=== PATIENT | female | born 1955 | race African-American/Black ===

== ENCOUNTER 2016-12-20 08:51 | Inpatient (IN) | payer MEDICAID ==
[~2016-12-20] VITALS: Ht 170.2 cm; Wt 121.5 kg
[~2016-12-20 08:51] MED LIST: AMLO2.5T PO; ATOR10TA PO; CAR3125T PO; HYDR-1421 PO; INSU70IN9 SUBCUT; METO25TA62 PO; NITR0.4S31 SL; VALS40TA2 PO; ZOLP5TAB5 PO
[2016-12-20] MEDS ORDERED: ONDANSETRON HCL 4 MG/2 ML VIAL IV ONE (11:15)
[2016-12-20] MEDS ORDERED: LIDOCAINE 1% HCL (LOCAL ANESTH.) INJ 20ML MDV IJ ONE (11:45)
[2016-12-20] MEDS ORDERED: HYDROmorphone HCL 2 MG/ML VL IV ONE (12:00)
[2016-12-20 13:26] LABS: Basophils # (auto) 0.1 uL; Basophils % (auto) 0.7 % (0.0-2.0); Eosinophils # (auto) 0.1 uL; Hematocrit 32.2 % (36.0-46.0); Hemoglobin 10.3 g/dL (12.2-16.2); Lymphocytes # (auto) 1.5 uL; Lymphocytes % (auto) 21.7 % (10.0-50.0); Mean Corpuscular Hemoglobin 30.7 pg (28.0-32.0); Mean Corpuscular Hgb Conc. 31.9 g/dL (32.0-36.0); Mean Corpuscular Volume 96.4 fL (80.0-100.0); Mean Platelet Volume 8.1 fL (7.4-10.4); Monocytes # (auto) 0.4 uL; Monocytes % (auto) 6.2 % (0.0-12.0); Neutrophils % (auto) 69.4 % (37.0-80.0); Platelet Count (auto) 212 10^3/uL (140-450); Red Cell Distribution Width 16.7 % (11.6-16.0); White Blood Cell 7.1 10^3/uL (4.4-10.8)
[2016-12-20 13:50] LABS: Temperature: 23.1 C (20.0-25.0)
[2016-12-20] MEDS ORDERED: DEXTROSE (50%) 50ML SYRG IV PRN (14:00)
[2016-12-20 14:05] LABS: Potassium 4.8 mmol/L (3.5-5.1)
[2016-12-20 14:06] LABS: Albumin 3.2 g/dL (3.4-5.0); BUN/Creatinine Ratio 5.1; Bilirubin, Total 0.4 mg/dL (0.2-1.0); Calcium 7.8 mg/dL (8.5-10.1); Total Protein 7.3 g/dL (6.4-8.2)
[2016-12-20 14:14] LABS: INR 1.11 (0.9-1.15); Partial Thromboplastin Time 26.3 sec (22.64-33.71); Prothrombin Time 11.4 sec (9.37-12.3)
[2016-12-20] MEDS: VALSARTAN 80 MG TAB PO ONE ×2 (14:37→14:38)
[2016-12-20] MEDS: METOPROLOL TARTRATE 25 MG TAB PO ONE (14:38)
[2016-12-20] MEDS: HYDROmorphone HCL 2 MG/ML VL IV PRN ×2 (16:29→20:46)
[2016-12-20] MEDS: ACCU-CHEK COMFORT CURVE STRIP VI SCH ×2 (17:00→22:15)
[2016-12-20] MEDS: InsuLIN REG 1unit/0.01ml Soln (100units/ml) SC SCH ×2 (17:54→22:21)
[2016-12-20 18:00] VITALS: BP 134/68
[2016-12-20] MEDS: IPRATROPIUM BROM 0.5 MG/2.5ML INH SOL NEB SCH (19:17)
[2016-12-20] MEDS: ALBUTEROL SULF 2.5 MG/0.5ML(0.5%) NEB SOLN NEB SCH (19:17)
[2016-12-20] MEDS: INSULIN DETEMIR(LEVEMIR) 1unit/0.01ml Soln (100units/ml) SC SCH (22:00)
[2016-12-20] MEDS: METOPROLOL TARTRATE 25 MG TAB PO SCH (22:15)
[2016-12-20] MEDS: ATORVASTATIN 20 MG TAB PO SCH (22:15)
[2016-12-20 22:18] VITALS: BP 145/71
[2016-12-21] MEDS: HYDROmorphone HCL 2 MG/ML VL IV PRN ×4 (01:37→23:26)
[2016-12-21 05:10] VITALS: BP 128/59
[2016-12-21] MEDS: ACCU-CHEK COMFORT CURVE STRIP VI SCH ×4 (06:41→22:00)
[2016-12-21] MEDS: InsuLIN REG 1unit/0.01ml Soln (100units/ml) SC SCH ×4 (06:41→22:00)
[2016-12-21 06:48] LABS: BUN/Creatinine Ratio 5.4; Calcium 7.6 mg/dL (8.5-10.1)
[2016-12-21 06:52] LABS: Potassium 6.1 mmol/L (3.5-5.1)
[2016-12-21] MEDS: IPRATROPIUM BROM 0.5 MG/2.5ML INH SOL NEB SCH ×3 (07:02→19:54)
[2016-12-21] MEDS: ALBUTEROL SULF 2.5 MG/0.5ML(0.5%) NEB SOLN NEB SCH ×3 (07:02→19:53)
[2016-12-21] MEDS ORDERED: SODIUM POLYSTYRENE SULF 15GM/60ML SUSP PO ONE (07:45)
[2016-12-21] MEDS ORDERED: DEXTROSE (50%) 50ML SYRG IV ONE (07:45)
[2016-12-21] MEDS ORDERED: CALCIUM GLUC 4.65 MEQ/10ML 4.65 MEQ in SODIUM CHL 0.9% 50 ML IV ONE (07:45)
[2016-12-21] MEDS ORDERED: ALBUTEROL SULF 2.5 MG/0.5ML(0.5%) NEB SOLN NEB ONE (07:45)
[2016-12-21] MEDS ORDERED: InsuLIN REG 1unit/0.01ml Soln (100units/ml) IV ONE (07:45)
[2016-12-21] MEDS ORDERED: SODIUM BICARBONATE 8.4 % INJ 50ML VIAL IV ONE (07:45)
[2016-12-21 08:30] VITALS: BP 95/46
[2016-12-21] MEDS ORDERED: VALSARTAN 80 MG TAB PO SCH (10:00)
[2016-12-21] MEDS: METOPROLOL TARTRATE 25 MG TAB PO SCH ×2 (10:00→22:00)
[2016-12-21] MEDS: B-COMPLEX W/ C & FOLIC ACID(NEPHROVITE TAB) PO SCH (10:00)
[2016-12-21] MEDS: INSULIN DETEMIR(LEVEMIR) 1unit/0.01ml Soln (100units/ml) SC SCH ×2 (10:00→22:00)
[2016-12-21] MEDS ORDERED: LEVOFLOXACIN 250MG 50 ML IV ONE (11:15)
[2016-12-21] MEDS ORDERED: LEVOFLOXACIN 500MG 100 ML IV ONE (11:30)
[2016-12-21] MEDS ORDERED: SODIUM CHL 0.9% 1000 ML BAG XX ONE (11:45)
[2016-12-21] MEDS ORDERED: EPOETIN ALFA 3,000 UNIT/1 ML VIAL IV ONE (12:15)
[2016-12-21] MEDS ORDERED: EPOETIN ALFA 2,000 UNIT/1 ML VIAL IV ONE (12:15)
[2016-12-21 12:34] VITALS: BP 99/45
[2016-12-21 16:25] VITALS: BP 135/68
[2016-12-21 17:09] VITALS: BP 115/83
[2016-12-21 21:48] VITALS: BP 134/54
[2016-12-21] MEDS: ATORVASTATIN 20 MG TAB PO SCH (22:00)
[2016-12-22] MEDS: ALBUTEROL SULF 2.5 MG/0.5ML(0.5%) NEB SOLN NEB SCH ×5 (00:56→19:05)
[2016-12-22] MEDS: IPRATROPIUM BROM 0.5 MG/2.5ML INH SOL NEB SCH ×5 (00:56→19:05)
[2016-12-22 04:59] VITALS: BP 102/45
[2016-12-22] MEDS: HYDROmorphone HCL 2 MG/ML VL IV PRN ×2 (05:47→12:47)
[2016-12-22 06:03] LABS: Basophils # (auto) 0 uL; Basophils % (auto) 0.3 % (0.0-2.0); Eosinophils # (auto) 0.1 uL; Eosinophils % (auto) 1.1 % (0.0-7.0); Hematocrit 28.4 % (36.0-46.0); Hemoglobin 9.1 g/dL (12.2-16.2); Lymphocytes # (auto) 1.2 uL; Lymphocytes % (auto) 15.1 % (10.0-50.0); Mean Corpuscular Hgb Conc. 32.2 g/dL (32.0-36.0); Mean Corpuscular Volume 96.2 fL (80.0-100.0); Mean Platelet Volume 8.3 fL (7.4-10.4); Monocytes # (auto) 0.5 uL; Monocytes % (auto) 6.4 % (0.0-12.0); Neutrophils # (auto) 6.2 uL; Neutrophils % (auto) 77.1 % (37.0-80.0); Platelet Count (auto) 206 10^3/uL (140-450); Red Cell Distribution Width 16.5 % (11.6-16.0)
[2016-12-22 06:34] LABS: BUN/Creatinine Ratio 4.8; Calcium 7.1 mg/dL (8.5-10.1); Potassium 3.9 mmol/L (3.5-5.1)
[2016-12-22] MEDS: LEVOFLOXACIN 250MG 50 ML IV SCH (06:37)
[2016-12-22] MEDS: InsuLIN REG 1unit/0.01ml Soln (100units/ml) SC SCH ×4 (07:00→21:49)
[2016-12-22] MEDS: ACCU-CHEK COMFORT CURVE STRIP VI SCH ×4 (07:00→21:51)
[2016-12-22 08:30] VITALS: BP 132/52
[2016-12-22] MEDS: B-COMPLEX W/ C & FOLIC ACID(NEPHROVITE TAB) PO SCH (09:34)
[2016-12-22] MEDS: INSULIN DETEMIR(LEVEMIR) 1unit/0.01ml Soln (100units/ml) SC SCH ×2 (09:36→21:50)
[2016-12-22] MEDS: METOPROLOL TARTRATE 25 MG TAB PO SCH ×2 (09:39→21:55)
[2016-12-22] MEDS ORDERED: LEVOFLOXACIN 250MG 50 ML IV SCH (10:00)
[2016-12-22] MEDS ORDERED: ASPirin 81 mg TAB PO ONE (12:00)
[2016-12-22] MEDS ORDERED: CLOPIDOGREL BISULFATE 75 MG TAB PO ONE ×2 (12:00→15:15)
[2016-12-22 12:30] VITALS: BP 98/64
[2016-12-22] MEDS ORDERED: ASPirin 325 MG TAB PO ONE (14:30)
[2016-12-22] MEDS ORDERED: CLOPIDOGREL 300 MG TAB PO ONE ×2 (14:30→15:15)
[2016-12-22] MEDS ORDERED: ASPirin-EC 81 mg tab PO ONE (15:15)
[2016-12-22 17:29] VITALS: BP 96/37
[2016-12-22] MEDS ORDERED: ACETAMINOPHEN 500 MG TAB PO PRN (19:30)
[2016-12-22] MEDS: traMADol HCL 50 MG TAB PO PRN (21:07)
[2016-12-22] MEDS: ATORVASTATIN 20 MG TAB PO SCH (21:55)
[2016-12-22 22:04] VITALS: BP 111/55
[2016-12-23] VITALS (7 sets, daily range): BP systolic 99–127; BP diastolic 42–58
[2016-12-23] MEDS: IPRATROPIUM BROM 0.5 MG/2.5ML INH SOL NEB SCH ×4 (00:57→18:37)
[2016-12-23] MEDS: ALBUTEROL SULF 2.5 MG/0.5ML(0.5%) NEB SOLN NEB SCH ×4 (00:57→18:38)
[2016-12-23 06:11] LABS: Basophils # (auto) 0 uL; Basophils % (auto) 0.4 % (0.0-2.0); Eosinophils # (auto) 0.1 uL; Eosinophils % (auto) 1.9 % (0.0-7.0); Hematocrit 29.7 % (36.0-46.0); Hemoglobin 9.5 g/dL (12.2-16.2); Lymphocytes # (auto) 1.3 uL; Lymphocytes % (auto) 17.7 % (10.0-50.0); Mean Corpuscular Hgb Conc. 32.1 g/dL (32.0-36.0); Mean Corpuscular Volume 96.6 fL (80.0-100.0); Mean Platelet Volume 8.3 fL (7.4-10.4); Monocytes # (auto) 0.5 uL; Neutrophils # (auto) 5.5 uL; Platelet Count (auto) 205 10^3/uL (140-450); Red Cell Distribution Width 16.5 % (11.6-16.0); White Blood Cell 7.6 10^3/uL (4.4-10.8)
[2016-12-23] MEDS: InsuLIN REG 1unit/0.01ml Soln (100units/ml) SC SCH ×4 (06:23→22:08)
[2016-12-23] MEDS: ACCU-CHEK COMFORT CURVE STRIP VI SCH ×4 (06:24→22:19)
[2016-12-23 06:45] LABS: BUN/Creatinine Ratio 5.3; Calcium 7.5 mg/dL (8.5-10.1); Potassium 3.8 mmol/L (3.5-5.1)
[2016-12-23] MEDS ORDERED: SODIUM CHL 0.9% 1000 ML BAG XX ONE (08:00)
[2016-12-23] MEDS ORDERED: EPOETIN ALFA 10,000 UNIT/1 ML VIAL IV ONE (08:00)
[2016-12-23] MEDS ORDERED: CLOPIDOGREL BISULFATE 75 MG TAB PO SCH (10:00)
[2016-12-23] MEDS: INSULIN DETEMIR(LEVEMIR) 1unit/0.01ml Soln (100units/ml) SC SCH ×2 (10:00→22:10)
[2016-12-23] MEDS ORDERED: ASPirin-EC 81 mg tab PO SCH (10:00)
[2016-12-23] MEDS: B-COMPLEX W/ C & FOLIC ACID(NEPHROVITE TAB) PO SCH (10:52)
[2016-12-23] MEDS: CLOPIDOGREL BISULFATE 75 MG TAB PO SCH (10:52)
[2016-12-23] MEDS: ASPirin 81 mg TAB PO SCH (10:52)
[2016-12-23] MEDS: traMADol HCL 50 MG TAB PO PRN (10:53)
[2016-12-23] MEDS: METOPROLOL TARTRATE 25 MG TAB PO SCH ×2 (10:53→21:11)
[2016-12-23] MEDS: ACETAMINOPHEN/CODEINE#3 (300/30mg) TAB PO PRN ×2 (14:33→21:19)
[2016-12-23] MEDS ORDERED: FAMOTIDINE 20 MG TAB PO ONE (18:00)
[2016-12-23] MEDS: ATORVASTATIN 20 MG TAB PO SCH (22:08)
[2016-12-24] MEDS: ALBUTEROL SULF 2.5 MG/0.5ML(0.5%) NEB SOLN NEB SCH ×3 (00:38→12:39)
[2016-12-24] MEDS: IPRATROPIUM BROM 0.5 MG/2.5ML INH SOL NEB SCH ×3 (00:38→12:39)
[2016-12-24 05:00] VITALS: BP 121/50
[2016-12-24] MEDS: ACETAMINOPHEN/CODEINE#3 (300/30mg) TAB PO PRN ×3 (05:12→17:41)
[2016-12-24] MEDS: LEVOFLOXACIN 250MG 50 ML IV SCH (05:19)
[2016-12-24] MEDS: InsuLIN REG 1unit/0.01ml Soln (100units/ml) SC SCH ×3 (05:20→17:00)
[2016-12-24] MEDS: ACCU-CHEK COMFORT CURVE STRIP VI SCH ×3 (05:20→17:00)
[2016-12-24] MEDS ORDERED: SODIUM CHL 0.9% 1000 ML BAG XX ONE ×2 (07:30→10:30)
[2016-12-24] MEDS ORDERED: EPOETIN ALFA 10,000 UNIT/1 ML VIAL IV ONE ×2 (07:30→10:30)
[2016-12-24 08:13] VITALS: BP 100/44
[2016-12-24] MEDS: ASPirin 81 mg TAB PO SCH (10:00)
[2016-12-24] MEDS: B-COMPLEX W/ C & FOLIC ACID(NEPHROVITE TAB) PO SCH (10:00)
[2016-12-24] MEDS: INSULIN DETEMIR(LEVEMIR) 1unit/0.01ml Soln (100units/ml) SC SCH (10:00)
[2016-12-24] MEDS: METOPROLOL TARTRATE 25 MG TAB PO SCH (10:00)
[2016-12-24] MEDS: CLOPIDOGREL BISULFATE 75 MG TAB PO SCH (10:00)
[2016-12-24] MEDS ORDERED: FAMOTIDINE 20 MG TAB PO SCH (10:00)
[2016-12-24 13:08] VITALS: BP 108/52
[2016-12-24 16:55] VITALS: BP 119/59
== END 2016-12-24 19:30 | disposition home or self-care (01) | DRG 194 ==
LOC: EDBD 08:51 → ER 08:51 → OVERFLOW 08:52 → WEST WING 17:47
PROVIDERS: ADMIT Internal Medicine; ATTEND Internal Medicine
PROC: 0X950ZZ Drainage of Left Axilla, Open Approach (ICD-10-PCS; principal; 2016-12-20)
PROC: 5A1D60Z (ICD-10-PCS; 2016-12-20)
DX: I50.33 Acute on chronic diastolic (congestive) heart failure (principal); J96.10 Chronic respiratory failure, unspecified whether with hypoxia or hypercapnia; N18.6 End stage renal disease; E11.21 Type 2 diabetes mellitus with diabetic nephropathy; I13.2 Hypertensive heart and chronic kidney disease with heart failure and with stage 5 chronic kidney disease, or end stage renal disease; E87.5 Hyperkalemia; J44.9 Chronic obstructive pulmonary disease, unspecified; E66.01 Morbid (severe) obesity due to excess calories; L02.412 Cutaneous abscess of left axilla; Z99.2 Dependence on renal dialysis; I25.10 Atherosclerotic heart disease of native coronary artery without angina pectoris; D64.9 Anemia, unspecified; E11.22 Type 2 diabetes mellitus with diabetic chronic kidney disease; F17.210 Nicotine dependence, cigarettes, uncomplicated; M16.11 Unilateral primary osteoarthritis, right hip; M70.60 Trochanteric bursitis, unspecified hip; Z98.61 Coronary angioplasty status; Z99.81 Dependence on supplemental oxygen; Z88.5 Allergy status to narcotic agent; Z88.8 Allergy status to other drugs, medicaments and biological substances; Z98.51 Tubal ligation status; Z90.89 Acquired absence of other organs; Z80.9 Family history of malignant neoplasm, unspecified; Z71.9 Counseling, unspecified
CPT/HCPCS: 10060; 36415; 71010; 72170; 73502; 80048; 80053; 82962; 83036; 83880; 84132; 84443; 84484; 85025; 85610; 85730; 87081; 90935; 93306; 93926; 94640; 94761; 96374; 96375; 96376; J0885; J1642; J1815; J1956; J2001; J2405; Q4081

== ENCOUNTER 2017-05-02 16:34 | Emergency (ER) | payer MEDICAID ==
[~2017-05-02] VITALS: Ht 154.9 cm; Wt 124.3 kg
[2017-05-02 16:56] VITALS: BP 176/84
[2017-05-02] MEDS ORDERED: DIAZEPAM 5 MG TAB PO ONE (17:15)
[2017-05-02] MEDS ORDERED: KETOROLAC TROMETH 60MG/2ML VIAL IM ONE (17:15)
== END 2017-05-02 18:16 | disposition home or self-care (01) ==
LOC: EDBD 16:34 → ER 16:37
DX: M47.892 Other spondylosis, cervical region (principal); I13.0 Hypertensive heart and chronic kidney disease with heart failure and stage 1 through stage 4 chronic kidney disease, or unspecified chronic kidney disease; E11.22 Type 2 diabetes mellitus with diabetic chronic kidney disease; N18.9 Chronic kidney disease, unspecified; I50.9 Heart failure, unspecified; N18.6 End stage renal disease; E78.5 Hyperlipidemia, unspecified; I10 Essential (primary) hypertension; Z90.89 Acquired absence of other organs; Z98.51 Tubal ligation status; F17.210 Nicotine dependence, cigarettes, uncomplicated; Z79.4 Long term (current) use of insulin; Z88.6 Allergy status to analgesic agent; Z88.5 Allergy status to narcotic agent; Z88.8 Allergy status to other drugs, medicaments and biological substances
CPT/HCPCS: 72040; 96372; 99284; J1885

== ENCOUNTER 2017-10-11 15:52 | Inpatient (IN) | payer MEDICAID ==
[~2017-10-11] VITALS: Ht 162.6 cm; Wt 114.6 kg
[~2017-10-11 15:52] MED LIST changes: +DOPamine 1600mCg/ml 400MG/250ml NSorD5 KIT/BAG IV ONE; +EPINEPHrine HCL 1 MG/10 ML SYRG IV ONE; +SODIUM BICARBONATE 8.4% INJ 50ML SYRINGE IV ONE
[2017-10-11] MEDS ORDERED: MIDAZOLAM DRIP 50 mg/50mL 50 ML IV ONE (16:00)
[2017-10-11] MEDS ORDERED: MIDAZOLAM DRIP 50 mg/50mL 50 ML IV SCH (16:18)
[2017-10-11] MEDS ORDERED: FUROSEMIDE 40 MG/4 ML VIAL IV ONE (17:00)
[2017-10-11] MEDS ORDERED: NOREPINEPHRINE 8 MG/250ML KIT 250 ML IV ONE (17:14)
[2017-10-11 17:15] LABS: Albumin 3.3 g/dL (3.4-5.0); BUN/Creatinine Ratio 5.9; Bilirubin, Total 0.5 mg/dL (0.2-1.0); Calcium 9.4 mg/dL (8.5-10.1); Magnesium 2.4 mg/dL (1.6-2.6); Potassium 3.4 mmol/L (3.5-5.1); Total Protein 7.8 g/dL (6.4-8.2)
[2017-10-11] MEDS ORDERED: NOREPINEPHRINE 8 MG/250ML KIT 250 ML IV SCH ×2 (17:30→18:00)
[2017-10-11 17:31] LABS: Basophils # (auto) 0.1 uL; Eosinophils # (auto) 0.2 uL; Monocytes # (auto) 0.4 uL; Nucleated Red Blood Cells % 0.1 %
[2017-10-11 17:35] LABS: Basophils % (auto) 1.4 % (0.0-2.0); Eosinophils % (auto) 1.8 % (0.0-7.0); Hematocrit 35.9 % (36.0-46.0); Lymphocytes # (auto) 3.2 uL; Lymphocytes % (auto) 34.1 % (10.0-50.0); Mean Corpuscular Hemoglobin 29.7 pg (28.0-32.0); Mean Corpuscular Hgb Conc. 30.6 g/dL (32.0-36.0); Monocytes % (auto) 4.1 % (0.0-12.0); Neutrophils # (auto) 5.5 uL; Neutrophils % (auto) 58.6 % (37.0-80.0); Platelet Count (auto) 219 10^3/uL (140-450); Red Cell Distribution Width 18.7 % (11.8-14.3); White Blood Cell 9.4 10^3/uL (4.4-10.8)
[2017-10-11 17:36] LABS: INR 1.07 (0.9-1.15); Partial Thromboplastin Time 22.1 sec (22.64-33.71); Prothrombin Time 11.7 sec (9.37-12.3)
[2017-10-11] MEDS: MIDAZOLAM DRIP 50 mg/50mL 50 ML IV SCH (17:54)
[2017-10-11] MEDS ORDERED: PIPERACILLIN-TAZOB 2.25GM 50 ML IV ONE (18:00)
[2017-10-11] MEDS ORDERED: SODIUM CHLORIDE 0.9% 1,000 ML IV SCH (18:07)
[2017-10-11] MEDS ORDERED: ONDANSETRON HCL 4 MG/2 ML VIAL IV PRN (18:15)
[2017-10-11] MEDS ORDERED: DEXTROSE (50%) 50ML SYRG IV PRN (18:15)
[2017-10-11] MEDS ORDERED: NITROGLYCERIN 0.4 MG SL TAB SL PRN (18:15)
[2017-10-11] MEDS ORDERED: PANTOPRAZOLE 40 MG/10 ML VIAL IV ONE (18:15)
[2017-10-11 18:20] VITALS: BP 139/59
[2017-10-11] MEDS ORDERED: ENOXAPARIN SOD 30 MG/0.3 ML SYRINGE SC SCH (18:40)
[2017-10-11] MEDS ORDERED: POTASSIUM CHLORIDE 20 MEQ, LIDOCAINE 1% (LOCAL ANESTH.) 2 ML in SODIUM CHL 0.9% 100 ML IV ONE (19:15)
[2017-10-11] MEDS ORDERED: PIPERACILLIN-TAZOB 0.75 GM in D5W 5% 50 ML IV PRN (19:15)
[2017-10-11] MEDS: PROPOFOL 100 ML IV SCH (19:47)
[2017-10-11 20:15] VITALS: BP 136/52
[2017-10-11 20:41] LABS: Lactic Acid w/Reflex 3.9 mmol/L (0.4-2.0)
[2017-10-11] MEDS: LINEZOLID 600MG/300ML 300 ML IV SCH (21:50)
[2017-10-11] MEDS ORDERED: FAMOTIDINE (10MG/ML) 2ML VL IV SCH (22:00)
[2017-10-11] MEDS ORDERED: PIPERACILLIN-TAZOB 2.25GM 50 ML IV SCH ×2 (22:00)
[2017-10-11 22:15] VITALS: BP 140/67
[2017-10-11 22:41] VITALS: BP 132/64
[2017-10-11 23:04] LABS: Lactic Acid w/Reflex 2.1 mmol/L (0.4-2.0)
[2017-10-11 23:15] VITALS: BP 127/62
[2017-10-12] VITALS (56 sets, daily range): BP systolic 76–150; BP diastolic 37–74
[2017-10-12] MEDS: ACCU-CHEK COMFORT CURVE STRIP VI SCH ×4 (01:30→18:03)
[2017-10-12] MEDS: InsuLIN REG 1unit/0.01ml Soln (100units/ml) SC SCH ×4 (01:57→18:00)
[2017-10-12] MEDS: HYDROmorphone HCL 2 MG/ML VL IV PRN ×3 (02:10→11:43)
[2017-10-12 04:13] LABS: Basophils # (auto) 0 uL; Basophils % (auto) 0.1 % (0.0-2.0); Eosinophils # (auto) 0 uL; Eosinophils % (auto) 0.1 % (0.0-7.0); Hematocrit 30.7 % (36.0-46.0); Hemoglobin 9.8 g/dL (12.2-16.2); Lymphocytes # (auto) 1.1 uL; Lymphocytes % (auto) 10.8 % (10.0-50.0); Mean Corpuscular Hemoglobin 30.1 pg (28.0-32.0); Mean Corpuscular Hgb Conc. 31.8 g/dL (32.0-36.0); Mean Corpuscular Volume 94.5 fL (80.0-100.0); Monocytes # (auto) 0.5 uL; Neutrophils # (auto) 8.6 uL; Platelet Count (auto) 202 10^3/uL (140-450); Red Blood Cells 3.25 10^6/uL (4.0-5.20); Red Cell Distribution Width 18.2 % (11.8-14.3); White Blood Cell 10.2 10^3/uL (4.4-10.8)
[2017-10-12 04:31] LABS: Albumin 2.8 g/dL (3.4-5.0); BUN/Creatinine Ratio 6.2; Bilirubin, Total 0.5 mg/dL (0.2-1.0); Calcium 8.2 mg/dL (8.5-10.1); Potassium 4.5 mmol/L (3.5-5.1); Total Protein 7.1 g/dL (6.4-8.2)
[2017-10-12] MEDS ORDERED: NOREPINEPHRINE 8 MG/250ML KIT 250 ML IV SCH (05:11)
[2017-10-12] MEDS ORDERED: ALBUMIN 5% 250 ML IV ONE (05:15)
[2017-10-12] MEDS: IPRATROPIUM BROM 0.5 MG/2.5ML INH SOL NEB SCH ×4 (06:14→19:10)
[2017-10-12] MEDS: ALBUTEROL SULF 2.5 MG/0.5ML(0.5%) NEB SOLN NEB SCH ×4 (06:14→19:10)
[2017-10-12] MEDS: MIDAZOLAM DRIP 50 mg/50mL 50 ML IV SCH ×4 (08:08→22:29)
[2017-10-12] MEDS: PIPERACILLIN-TAZOB 2.25GM 50 ML IV SCH ×2 (08:28→18:03)
[2017-10-12] MEDS: fentaNYL Drip 2500mCg/250mlNS 250 ML IV SCH (09:03)
[2017-10-12] MEDS ORDERED: OPTISON 3ml Vial for INJ IV ONE (09:12)
[2017-10-12] MEDS: LINEZOLID 600MG/300ML 300 ML IV SCH ×2 (09:47→21:47)
[2017-10-12] MEDS: HEPARIN SODIUM (PORCINE) 5000 UNITS/ML 1ML VIAL SC SCH ×2 (09:47→21:48)
[2017-10-12] MEDS: PANTOPRAZOLE 40 MG/10 ML VIAL IV SCH (09:47)
[2017-10-12] MEDS ORDERED: EPOETIN ALFA 10,000 UNIT/1 ML VIAL IV ONE (10:45)
[2017-10-12] MEDS: SODIUM CHLORIDE 0.9% 1,000 ML IV SCH (10:45)
[2017-10-12] MEDS ORDERED: ALBUMIN 25% 100 ML IV PRN (10:45)
[2017-10-12] MEDS ORDERED: SODIUM CHL 0.9% 1000 ML BAG XX ONE (10:45)
[2017-10-12] MEDS: CALCIUM ACETATE 667 MG CAP NG SCH ×2 (14:20→21:47)
[2017-10-12] MEDS: PROPOFOL 100 ML IV SCH (14:24)
[2017-10-12] MEDS ORDERED: LIDOCAINE 1% HCL (LOCAL ANESTH.) INJ 20ML MDV ID ONE (20:00)
[2017-10-12] MEDS: SODIUM CHLOR 0.9% PF (SALINE LOCK) 10ML VIAL IV SCH (21:46)
[2017-10-13] VITALS (54 sets, daily range): BP systolic 101–188; BP diastolic 47–76
[2017-10-13] MEDS: ACCU-CHEK COMFORT CURVE STRIP VI SCH ×4 (00:14→17:14)
[2017-10-13] MEDS: ALBUTEROL SULF 2.5 MG/0.5ML(0.5%) NEB SOLN NEB SCH ×3 (00:23→18:42)
[2017-10-13] MEDS: IPRATROPIUM BROM 0.5 MG/2.5ML INH SOL NEB SCH ×3 (00:23→18:42)
[2017-10-13] MEDS: MIDAZOLAM DRIP 50 mg/50mL 50 ML IV SCH ×5 (02:23→23:46)
[2017-10-13 03:44] LABS: Basophils # (auto) 0.2 uL; Basophils % (auto) 3.4 % (0.0-2.0); Eosinophils # (auto) 0.2 uL; Eosinophils % (auto) 2.4 % (0.0-7.0); Hematocrit 28.4 % (36.0-46.0); Hemoglobin 9.1 g/dL (12.2-16.2); Lymphocytes # (auto) 1.3 uL; Lymphocytes % (auto) 20.4 % (10.0-50.0); Mean Corpuscular Hgb Conc. 31.9 g/dL (32.0-36.0); Mean Corpuscular Volume 94.2 fL (80.0-100.0); Monocytes # (auto) 0.6 uL; Monocytes % (auto) 9.9 % (0.0-12.0); Neutrophils # (auto) 4.1 uL; Neutrophils % (auto) 63.9 % (37.0-80.0); Nucleated Red Blood Cells % 0.1 %; Platelet Count (auto) 187 10^3/uL (140-450); Red Blood Cells 3.02 10^6/uL (4.0-5.20); Red Cell Distribution Width 18.6 % (11.8-14.3); White Blood Cell 6.4 10^3/uL (4.4-10.8)
[2017-10-13 04:05] LABS: Albumin 3.4 g/dL (3.4-5.0); Calcium 8.8 mg/dL (8.5-10.1); Potassium 3.6 mmol/L (3.5-5.1)
[2017-10-13 04:07] LABS: BUN/Creatinine Ratio 4.9
[2017-10-13 04:12] LABS: Bilirubin, Total 0.6 mg/dL (0.2-1.0); Total Protein 7.1 g/dL (6.4-8.2)
[2017-10-13] MEDS: HYDROmorphone HCL 2 MG/ML VL IV PRN (04:39)
[2017-10-13] MEDS: PIPERACILLIN-TAZOB 2.25GM 50 ML IV SCH ×2 (05:43→17:41)
[2017-10-13] MEDS: CALCIUM ACETATE 667 MG CAP NG SCH ×3 (05:43→21:36)
[2017-10-13] MEDS: InsuLIN REG 1unit/0.01ml Soln (100units/ml) SC SCH ×4 (06:00→17:14)
[2017-10-13] MEDS: B-COMPLEX W/ C & FOLIC ACID(NEPHROVITE TAB) NG SCH (09:52)
[2017-10-13] MEDS: PANTOPRAZOLE 40 MG/10 ML VIAL IV SCH (09:52)
[2017-10-13] MEDS: SODIUM CHLOR 0.9% PF (SALINE LOCK) 10ML VIAL IV SCH ×2 (09:52→21:36)
[2017-10-13] MEDS: LINEZOLID 600MG/300ML 300 ML IV SCH (09:52)
[2017-10-13] MEDS: SODIUM CHLORIDE 0.9% 1,000 ML IV SCH (09:52)
[2017-10-13] MEDS: HEPARIN SODIUM (PORCINE) 5000 UNITS/ML 1ML VIAL SC SCH ×2 (10:00→21:37)
[2017-10-13] MEDS ORDERED: Diabetisource AC 1 Liter GT SCH (11:30)
[2017-10-13] MEDS: fentaNYL Drip 2500mCg/250mlNS 250 ML IV SCH ×2 (11:40→21:00)
[2017-10-13] MEDS ORDERED: SODIUM CHL 0.9% 1000 ML BAG XX ONE (15:00)
[2017-10-13] MEDS ORDERED: EPOETIN ALFA 10,000 UNIT/1 ML VIAL IV ONE (15:00)
[2017-10-13] MEDS ORDERED: Novasource Renal 1 Liter GT SCH (15:15)
[2017-10-13] MEDS ORDERED: VANCOMYCIN 1,250 MG in D5W 5% 250 ML IV ONE (16:00)
[2017-10-14] VITALS (33 sets, daily range): BP systolic 107–150; BP diastolic 36–60
[2017-10-14] MEDS: ACCU-CHEK COMFORT CURVE STRIP VI SCH ×4 (00:13→17:40)
[2017-10-14] MEDS: InsuLIN REG 1unit/0.01ml Soln (100units/ml) SC SCH ×4 (00:13→17:40)
[2017-10-14] MEDS: IPRATROPIUM BROM 0.5 MG/2.5ML INH SOL NEB SCH ×4 (00:17→18:59)
[2017-10-14] MEDS: ALBUTEROL SULF 2.5 MG/0.5ML(0.5%) NEB SOLN NEB SCH ×4 (00:17→18:59)
[2017-10-14 03:29] LABS: Basophils # (auto) 0.1 uL; Basophils % (auto) 0.7 % (0.0-2.0); Eosinophils # (auto) 0.2 uL; Eosinophils % (auto) 2.5 % (0.0-7.0); Hematocrit 29.1 % (36.0-46.0); Hemoglobin 9.2 g/dL (12.2-16.2); Lymphocytes # (auto) 1.5 uL; Lymphocytes % (auto) 18.6 % (10.0-50.0); Mean Corpuscular Hgb Conc. 31.7 g/dL (32.0-36.0); Mean Corpuscular Volume 94.5 fL (80.0-100.0); Monocytes # (auto) 0.8 uL; Monocytes % (auto) 9.8 % (0.0-12.0); Neutrophils # (auto) 5.4 uL; Neutrophils % (auto) 68.4 % (37.0-80.0); Platelet Count (auto) 187 10^3/uL (140-450); Red Blood Cells 3.08 10^6/uL (4.0-5.20); Red Cell Distribution Width 18.4 % (11.8-14.3); White Blood Cell 7.9 10^3/uL (4.4-10.8)
[2017-10-14 03:47] LABS: Albumin 3.1 g/dL (3.4-5.0); BUN/Creatinine Ratio 4.7; Calcium 8.9 mg/dL (8.5-10.1); Potassium 4.2 mmol/L (3.5-5.1)
[2017-10-14 03:51] LABS: Bilirubin, Total 0.6 mg/dL (0.2-1.0); Total Protein 7.3 g/dL (6.4-8.2)
[2017-10-14] MEDS: MIDAZOLAM DRIP 50 mg/50mL 50 ML IV SCH ×4 (04:45→22:30)
[2017-10-14] MEDS: SODIUM CHLORIDE 0.9% 1,000 ML IV SCH ×2 (05:00→22:45)
[2017-10-14] MEDS: PIPERACILLIN-TAZOB 2.25GM 50 ML IV SCH ×2 (06:23→17:40)
[2017-10-14] MEDS: CALCIUM ACETATE 667 MG CAP NG SCH ×3 (06:23→21:18)
[2017-10-14] MEDS: fentaNYL Drip 2500mCg/250mlNS 250 ML IV SCH (09:03)
[2017-10-14] MEDS: HEPARIN SODIUM (PORCINE) 5000 UNITS/ML 1ML VIAL SC SCH ×2 (10:00→22:00)
[2017-10-14] MEDS: B-COMPLEX W/ C & FOLIC ACID(NEPHROVITE TAB) NG SCH (10:00)
[2017-10-14] MEDS: PANTOPRAZOLE 40 MG/10 ML VIAL IV SCH (10:00)
[2017-10-14] MEDS: SODIUM CHLOR 0.9% PF (SALINE LOCK) 10ML VIAL IV SCH ×2 (10:00→22:00)
[2017-10-14] MEDS ORDERED: B-COMPLEX W/ C & FOLIC ACID(NEPHROVITE TAB) NG SCH (11:15)
[2017-10-14] MEDS: CALCITRIOL 0.25 MCG CAP NG SCH (12:09)
[2017-10-14] MEDS ORDERED: VANCOMYCIN 1,250 MG in D5W 5% 250 ML IV ONE (16:00)
[2017-10-15] VITALS (65 sets, daily range): BP systolic 95–143; BP diastolic 36–74
[2017-10-15] MEDS: ACCU-CHEK COMFORT CURVE STRIP VI SCH ×4 (00:20→17:46)
[2017-10-15] MEDS: InsuLIN REG 1unit/0.01ml Soln (100units/ml) SC SCH ×4 (00:24→18:14)
[2017-10-15] MEDS: IPRATROPIUM BROM 0.5 MG/2.5ML INH SOL NEB SCH ×4 (00:26→18:43)
[2017-10-15] MEDS: ALBUTEROL SULF 2.5 MG/0.5ML(0.5%) NEB SOLN NEB SCH ×4 (00:26→18:43)
[2017-10-15 04:57] LABS: Hemoglobin 7.7 g/dL (12.2-16.2); Monocytes # (auto) 0.5 uL; Neutrophils # (auto) 4.8 uL; Red Blood Cells 2.53 10^6/uL (4.0-5.20); White Blood Cell 6.3 10^3/uL (4.4-10.8)
[2017-10-15 04:59] LABS: Basophils # (auto) 0 uL; Basophils % (auto) 0.3 % (0.0-2.0); Eosinophils # (auto) 0.1 uL; Eosinophils % (auto) 2.1 % (0.0-7.0); Hematocrit 24.2 % (36.0-46.0); Lymphocytes # (auto) 0.7 uL; Lymphocytes % (auto) 11.8 % (10.0-50.0); Mean Corpuscular Hemoglobin 30.2 pg (28.0-32.0); Mean Corpuscular Hgb Conc. 31.6 g/dL (32.0-36.0); Mean Corpuscular Volume 95.5 fL (80.0-100.0); Monocytes % (auto) 8.8 % (0.0-12.0); Red Cell Distribution Width 17.8 % (11.8-14.3)
[2017-10-15 05:01] LABS: Platelet Count (auto) 175 10^3/uL (140-450)
[2017-10-15 05:19] LABS: Albumin 2.5 g/dL (3.4-5.0); Bilirubin, Total 0.5 mg/dL (0.2-1.0); Calcium 7.6 mg/dL (8.5-10.1); Potassium 4.5 mmol/L (3.5-5.1); Total Protein 6.3 g/dL (6.4-8.2)
[2017-10-15] MEDS: CALCIUM ACETATE 667 MG CAP NG SCH ×3 (06:26→21:58)
[2017-10-15] MEDS: PIPERACILLIN-TAZOB 2.25GM 50 ML IV SCH (06:26)
[2017-10-15] MEDS: fentaNYL Drip 2500mCg/250mlNS 250 ML IV SCH (09:03)
[2017-10-15] MEDS ORDERED: LEVOFLOXACIN 500MG 100 ML IV ONE (09:30)
[2017-10-15] MEDS: SODIUM CHLOR 0.9% PF (SALINE LOCK) 10ML VIAL IV SCH ×2 (09:43→21:58)
[2017-10-15] MEDS: PANTOPRAZOLE 40 MG/10 ML VIAL IV SCH (09:43)
[2017-10-15] MEDS: CALCITRIOL 0.25 MCG CAP NG SCH (09:44)
[2017-10-15] MEDS: HEPARIN SODIUM (PORCINE) 5000 UNITS/ML 1ML VIAL SC SCH ×2 (09:44→21:59)
[2017-10-15] MEDS: B-COMPLEX W/ C & FOLIC ACID(NEPHROVITE TAB) NG SCH (09:44)
[2017-10-15] MEDS ORDERED: VANCOMYCIN PER PHARMACY 1,000 MG IV SCH (17:15)
[2017-10-15] MEDS: MIDAZOLAM DRIP 50 mg/50mL 50 ML IV SCH (21:59)
[2017-10-16] VITALS (69 sets, daily range): BP systolic 93–183; BP diastolic 38–76
[2017-10-16] MEDS: ACCU-CHEK COMFORT CURVE STRIP VI SCH ×4 (00:12→17:56)
[2017-10-16] MEDS: InsuLIN REG 1unit/0.01ml Soln (100units/ml) SC SCH ×4 (00:13→18:00)
[2017-10-16] MEDS: IPRATROPIUM BROM 0.5 MG/2.5ML INH SOL NEB SCH ×4 (00:24→18:35)
[2017-10-16] MEDS: ALBUTEROL SULF 2.5 MG/0.5ML(0.5%) NEB SOLN NEB SCH ×4 (00:24→18:35)
[2017-10-16 05:01] LABS: Basophils # (auto) 0 uL; Basophils % (auto) 0.3 % (0.0-2.0); Hemoglobin 8.3 g/dL (12.2-16.2); Mean Corpuscular Hgb Conc. 32.3 g/dL (32.0-36.0); Monocytes # (auto) 0.6 uL; White Blood Cell 7.2 10^3/uL (4.4-10.8)
[2017-10-16 05:06] LABS: Eosinophils # (auto) 0.3 uL; Eosinophils % (auto) 3.5 % (0.0-7.0); Hematocrit 25.7 % (36.0-46.0); Lymphocytes # (auto) 1.1 uL; Lymphocytes % (auto) 14.9 % (10.0-50.0); Mean Corpuscular Hemoglobin 30.3 pg (28.0-32.0); Mean Corpuscular Volume 93.7 fL (80.0-100.0); Monocytes % (auto) 7.8 % (0.0-12.0); Neutrophils # (auto) 5.3 uL; Neutrophils % (auto) 73.5 % (37.0-80.0); Red Blood Cells 2.74 10^6/uL (4.0-5.20); Red Cell Distribution Width 18.1 % (11.8-14.3)
[2017-10-16 05:09] LABS: Platelet Count (auto) 173 10^3/uL (140-450)
[2017-10-16 05:41] LABS: Potassium 4.5 mmol/L (3.5-5.1)
[2017-10-16 05:42] LABS: BUN/Creatinine Ratio 5.4; Calcium 8.2 mg/dL (8.5-10.1)
[2017-10-16] MEDS: CALCIUM ACETATE 667 MG CAP NG SCH ×3 (06:15→22:29)
[2017-10-16] MEDS ORDERED: EPOETIN ALFA 10,000 UNIT/1 ML VIAL IV ONE ×2 (08:00→13:45)
[2017-10-16] MEDS ORDERED: SODIUM CHL 0.9% 1000 ML BAG XX ONE ×2 (08:00→13:45)
[2017-10-16] MEDS: fentaNYL Drip 2500mCg/250mlNS 250 ML IV SCH (09:03)
[2017-10-16] MEDS: B-COMPLEX W/ C & FOLIC ACID(NEPHROVITE TAB) NG SCH (10:00)
[2017-10-16] MEDS: LEVOFLOXACIN 250MG 50 ML IV SCH (10:00)
[2017-10-16] MEDS: PANTOPRAZOLE 40 MG/10 ML VIAL IV SCH (10:00)
[2017-10-16] MEDS: CALCITRIOL 0.25 MCG CAP NG SCH (10:00)
[2017-10-16] MEDS: HEPARIN SODIUM (PORCINE) 5000 UNITS/ML 1ML VIAL SC SCH ×2 (10:00→22:30)
[2017-10-16] MEDS: SODIUM CHLOR 0.9% PF (SALINE LOCK) 10ML VIAL IV SCH ×2 (10:06→22:29)
[2017-10-17] VITALS (79 sets, daily range): BP systolic 102–168; BP diastolic 47–86
[2017-10-17] MEDS: ACCU-CHEK COMFORT CURVE STRIP VI SCH ×4 (00:09→17:36)
[2017-10-17] MEDS: InsuLIN REG 1unit/0.01ml Soln (100units/ml) SC SCH ×4 (00:10→18:00)
[2017-10-17] MEDS: ALBUTEROL SULF 2.5 MG/0.5ML(0.5%) NEB SOLN NEB SCH ×4 (00:12→18:34)
[2017-10-17] MEDS: IPRATROPIUM BROM 0.5 MG/2.5ML INH SOL NEB SCH ×4 (00:12→18:34)
[2017-10-17 04:23] LABS: Basophils # (auto) 0 uL; Basophils % (auto) 0.2 % (0.0-2.0); Hemoglobin 7.9 g/dL (12.2-16.2); Red Cell Distribution Width 17.8 % (11.8-14.3)
[2017-10-17] MEDS: MIDAZOLAM DRIP 50 mg/50mL 50 ML IV SCH ×4 (04:24→13:00)
[2017-10-17 04:25] LABS: Eosinophils # (auto) 0.2 uL; Eosinophils % (auto) 2.5 % (0.0-7.0); Hematocrit 24.3 % (36.0-46.0); Lymphocytes # (auto) 0.8 uL; Lymphocytes % (auto) 8.6 % (10.0-50.0); Mean Corpuscular Hemoglobin 30.5 pg (28.0-32.0); Mean Corpuscular Hgb Conc. 32.5 g/dL (32.0-36.0); Mean Corpuscular Volume 93.8 fL (80.0-100.0); Monocytes # (auto) 0.7 uL; Monocytes % (auto) 7.5 % (0.0-12.0); Neutrophils % (auto) 81.2 % (37.0-80.0); Platelet Count (auto) 183 10^3/uL (140-450); Red Blood Cells 2.59 10^6/uL (4.0-5.20); White Blood Cell 9.8 10^3/uL (4.4-10.8)
[2017-10-17 05:02] LABS: BUN/Creatinine Ratio 5.1; Calcium 8.5 mg/dL (8.5-10.1); Potassium 4.6 mmol/L (3.5-5.1)
[2017-10-17] MEDS: CALCIUM ACETATE 667 MG CAP NG SCH ×3 (06:00→22:28)
[2017-10-17] MEDS ORDERED: MIDODRINE HCL 10 MG TAB PO ONE (08:45)
[2017-10-17] MEDS: fentaNYL Drip 2500mCg/250mlNS 250 ML IV SCH (09:03)
[2017-10-17] MEDS: HEPARIN SODIUM (PORCINE) 5000 UNITS/ML 1ML VIAL SC SCH ×2 (10:00→22:00)
[2017-10-17] MEDS: B-COMPLEX W/ C & FOLIC ACID(NEPHROVITE TAB) NG SCH (11:20)
[2017-10-17] MEDS: SODIUM CHLOR 0.9% PF (SALINE LOCK) 10ML VIAL IV SCH ×2 (11:20→22:28)
[2017-10-17] MEDS: PANTOPRAZOLE 40 MG/10 ML VIAL IV SCH (11:20)
[2017-10-17] MEDS ORDERED: VANCOMYCIN 500 MG in D5W 5% 100 ML IV ONE (17:00)
[2017-10-18] VITALS (77 sets, daily range): BP systolic 109–159; BP diastolic 50–88
[2017-10-18] MEDS: ALBUTEROL SULF 2.5 MG/0.5ML(0.5%) NEB SOLN NEB SCH ×4 (00:08→18:50)
[2017-10-18] MEDS: IPRATROPIUM BROM 0.5 MG/2.5ML INH SOL NEB SCH ×4 (00:08→18:50)
[2017-10-18 04:20] LABS: Basophils # (auto) 0.1 uL; Basophils % (auto) 0.7 % (0.0-2.0); Eosinophils # (auto) 0.4 uL; Eosinophils % (auto) 3.4 % (0.0-7.0); Hematocrit 30.7 % (36.0-46.0); Hemoglobin 9.9 g/dL (12.2-16.2); Lymphocytes # (auto) 1.2 uL; Lymphocytes % (auto) 10.1 % (10.0-50.0); Mean Corpuscular Hemoglobin 29.9 pg (28.0-32.0); Mean Corpuscular Hgb Conc. 32.4 g/dL (32.0-36.0); Mean Corpuscular Volume 92.1 fL (80.0-100.0); Monocytes # (auto) 0.9 uL; Monocytes % (auto) 7.7 % (0.0-12.0); Neutrophils % (auto) 78.1 % (37.0-80.0); Platelet Count (auto) 196 10^3/uL (140-450); Red Blood Cells 3.33 10^6/uL (4.0-5.20); Red Cell Distribution Width 17.3 % (11.8-14.3); White Blood Cell 11.5 10^3/uL (4.4-10.8)
[2017-10-18 05:14] LABS: BUN/Creatinine Ratio 4.7; Calcium 8.7 mg/dL (8.5-10.1); Potassium 4.1 mmol/L (3.5-5.1)
[2017-10-18] MEDS: ACCU-CHEK COMFORT CURVE STRIP VI SCH ×4 (06:03→18:00)
[2017-10-18] MEDS: CALCIUM ACETATE 667 MG CAP NG SCH ×3 (06:03→22:30)
[2017-10-18] MEDS: InsuLIN REG 1unit/0.01ml Soln (100units/ml) SC SCH ×4 (06:03→18:17)
[2017-10-18] MEDS ORDERED: SODIUM CHL 0.9% 1000 ML BAG XX ONE (09:00)
[2017-10-18] MEDS: fentaNYL Drip 2500mCg/250mlNS 250 ML IV SCH (09:30)
[2017-10-18] MEDS: HEPARIN SODIUM (PORCINE) 5000 UNITS/ML 1ML VIAL SC SCH ×2 (10:00→22:30)
[2017-10-18] MEDS: MIDAZOLAM DRIP 50 mg/50mL 50 ML IV SCH (11:00)
[2017-10-18] MEDS: SODIUM CHLOR 0.9% PF (SALINE LOCK) 10ML VIAL IV SCH ×2 (11:53→22:30)
[2017-10-18] MEDS: LEVOFLOXACIN 250MG 50 ML IV SCH (12:10)
[2017-10-18] MEDS: B-COMPLEX W/ C & FOLIC ACID(NEPHROVITE TAB) NG SCH (12:15)
[2017-10-18] MEDS: PANTOPRAZOLE 40 MG/10 ML VIAL IV SCH (12:15)
[2017-10-18] MEDS: CALCITRIOL 1 MCG/ML AMPULE IV SCH (13:30)
[2017-10-18] MEDS: Novasource Renal 1 Liter GT SCH (17:00)
[2017-10-19] VITALS (95 sets, daily range): BP systolic 99–168; BP diastolic 52–82
[2017-10-19] MEDS: InsuLIN REG 1unit/0.01ml Soln (100units/ml) SC SCH ×4 (00:30→18:00)
[2017-10-19] MEDS: ACCU-CHEK COMFORT CURVE STRIP VI SCH ×4 (00:30→18:00)
[2017-10-19] MEDS: IPRATROPIUM BROM 0.5 MG/2.5ML INH SOL NEB SCH ×4 (00:38→18:40)
[2017-10-19] MEDS: ALBUTEROL SULF 2.5 MG/0.5ML(0.5%) NEB SOLN NEB SCH ×4 (00:38→18:40)
[2017-10-19 04:05] LABS: BUN/Creatinine Ratio 4.8; Calcium 9.3 mg/dL (8.5-10.1)
[2017-10-19 04:19] LABS: Basophils # (auto) 0.1 uL; Basophils % (auto) 0.4 % (0.0-2.0); Eosinophils # (auto) 0.3 uL; Eosinophils % (auto) 2.5 % (0.0-7.0); Hematocrit 30.3 % (36.0-46.0); Hemoglobin 9.7 g/dL (12.2-16.2); Lymphocytes # (auto) 1.3 uL; Mean Corpuscular Hemoglobin 29.7 pg (28.0-32.0); Mean Corpuscular Hgb Conc. 31.9 g/dL (32.0-36.0); Monocytes # (auto) 0.9 uL; Neutrophils # (auto) 9.2 uL; Neutrophils % (auto) 78.1 % (37.0-80.0); Platelet Count (auto) 221 10^3/uL (140-450); Red Blood Cells 3.26 10^6/uL (4.0-5.20); Red Cell Distribution Width 17.5 % (11.8-14.3); White Blood Cell 11.8 10^3/uL (4.4-10.8)
[2017-10-19] MEDS: CALCIUM ACETATE 667 MG CAP NG SCH ×3 (06:15→21:59)
[2017-10-19] MEDS: B-COMPLEX W/ C & FOLIC ACID(NEPHROVITE TAB) NG SCH (10:29)
[2017-10-19] MEDS: PANTOPRAZOLE 40 MG/10 ML VIAL IV SCH (10:29)
[2017-10-19] MEDS: SODIUM CHLOR 0.9% PF (SALINE LOCK) 10ML VIAL IV SCH ×2 (10:29→21:59)
[2017-10-19] MEDS: fentaNYL Drip 2500mCg/250mlNS 250 ML IV SCH (10:33)
[2017-10-19] MEDS ORDERED: MEROPENEM 500mg/10ml IVPUSH 10 ML IV ONE (11:15)
[2017-10-19] MEDS ORDERED: SODIUM CHL 0.9% 1000 ML BAG XX ONE (13:15)
[2017-10-19] MEDS ORDERED: EPOETIN ALFA 10,000 UNIT/1 ML VIAL IV ONE (13:15)
[2017-10-19] MEDS: MIDAZOLAM DRIP 50 mg/50mL 50 ML IV SCH (17:54)
[2017-10-19] MEDS: LINEZOLID 600MG/300ML 300 ML IV SCH (21:58)
[2017-10-19] MEDS: HEPARIN SODIUM (PORCINE) 5000 UNITS/ML 1ML VIAL SC SCH (21:59)
[2017-10-20] VITALS (104 sets, daily range): BP systolic 114–188; BP diastolic 46–144
[2017-10-20] MEDS: ALBUTEROL SULF 2.5 MG/0.5ML(0.5%) NEB SOLN NEB SCH ×4 (00:13→18:06)
[2017-10-20] MEDS: IPRATROPIUM BROM 0.5 MG/2.5ML INH SOL NEB SCH ×4 (00:13→18:06)
[2017-10-20] MEDS: InsuLIN REG 1unit/0.01ml Soln (100units/ml) SC SCH ×5 (00:20→23:44)
[2017-10-20] MEDS: ACCU-CHEK COMFORT CURVE STRIP VI SCH ×5 (00:20→23:38)
[2017-10-20 04:11] LABS: Basophils # (auto) 0 uL; Basophils % (auto) 0.3 % (0.0-2.0); Eosinophils # (auto) 0.3 uL; Eosinophils % (auto) 2.2 % (0.0-7.0); Hematocrit 30.4 % (36.0-46.0); Hemoglobin 9.6 g/dL (12.2-16.2); Lymphocytes # (auto) 1.2 uL; Lymphocytes % (auto) 9.9 % (10.0-50.0); Mean Corpuscular Hemoglobin 29.6 pg (28.0-32.0); Mean Corpuscular Hgb Conc. 31.7 g/dL (32.0-36.0); Mean Corpuscular Volume 93.5 fL (80.0-100.0); Monocytes # (auto) 0.8 uL; Monocytes % (auto) 6.7 % (0.0-12.0); Neutrophils # (auto) 9.9 uL; Neutrophils % (auto) 80.9 % (37.0-80.0); Nucleated Red Blood Cells % 0.1 %; Platelet Count (auto) 253 10^3/uL (140-450); Red Blood Cells 3.25 10^6/uL (4.0-5.20); Red Cell Distribution Width 16.9 % (11.8-14.3); White Blood Cell 12.2 10^3/uL (4.4-10.8)
[2017-10-20 04:25] LABS: BUN/Creatinine Ratio 5.3; Calcium 9.2 mg/dL (8.5-10.1); Potassium 3.8 mmol/L (3.5-5.1)
[2017-10-20] MEDS: CALCIUM ACETATE 667 MG CAP NG SCH (06:22)
[2017-10-20] MEDS: fentaNYL Drip 2500mCg/250mlNS 250 ML IV SCH (09:03)
[2017-10-20] MEDS ORDERED: LABETALOL HCL 5 MG/ML ML 20ML VIAL IV PRN (09:15)
[2017-10-20] MEDS: SODIUM CHLOR 0.9% PF (SALINE LOCK) 10ML VIAL IV SCH ×2 (10:30→22:01)
[2017-10-20] MEDS: PANTOPRAZOLE 40 MG/10 ML VIAL IV SCH (11:36)
[2017-10-20] MEDS: LINEZOLID 600MG/300ML 300 ML IV SCH ×2 (11:36→21:58)
[2017-10-20] MEDS: HEPARIN SODIUM (PORCINE) 5000 UNITS/ML 1ML VIAL SC SCH ×2 (11:37→22:03)
[2017-10-20] MEDS: B-COMPLEX W/ C & FOLIC ACID(NEPHROVITE TAB) NG SCH (11:37)
[2017-10-20] MEDS ORDERED: LORazepam 2MG/ML-1ML VIAL ONE (11:58)
[2017-10-20] MEDS ORDERED: LORazepam 2MG/ML-1ML VIAL IM ONE (12:15)
[2017-10-20] MEDS ORDERED: LORazepam 2MG/ML-1ML VIAL IV ONE (12:15)
[2017-10-20] MEDS ORDERED: DEXMEDETOMIDINE HCL 400 MCG in D5W 5% 96 ML IV SCH (14:25)
[2017-10-20] MEDS: MEROPENEM 500mg/10ml IVPUSH 10 ML IV SCH (15:25)
[2017-10-20] MEDS: CALCITRIOL 1 MCG/ML AMPULE IV SCH (15:38)
[2017-10-20] MEDS: SEVELAMER 800 MG TAB PO SCH (17:47)
[2017-10-20] MEDS: MIDAZOLAM DRIP 50 mg/50mL 50 ML IV SCH (19:51)
[2017-10-21] VITALS (96 sets, daily range): BP systolic 102–159; BP diastolic 38–96
[2017-10-21] MEDS: IPRATROPIUM BROM 0.5 MG/2.5ML INH SOL NEB SCH ×4 (00:17→18:35)
[2017-10-21] MEDS: ALBUTEROL SULF 2.5 MG/0.5ML(0.5%) NEB SOLN NEB SCH ×4 (00:17→18:35)
[2017-10-21 04:30] LABS: Basophils # (auto) 0.1 uL; Basophils % (auto) 0.7 % (0.0-2.0); Eosinophils # (auto) 0.3 uL; Eosinophils % (auto) 3.1 % (0.0-7.0); Hematocrit 30.3 % (36.0-46.0); Hemoglobin 9.6 g/dL (12.2-16.2); Lymphocytes # (auto) 1.4 uL; Lymphocytes % (auto) 12.4 % (10.0-50.0); Mean Corpuscular Hemoglobin 29.4 pg (28.0-32.0); Mean Corpuscular Hgb Conc. 31.6 g/dL (32.0-36.0); Monocytes # (auto) 0.9 uL; Monocytes % (auto) 8.4 % (0.0-12.0); Neutrophils # (auto) 8.3 uL; Neutrophils % (auto) 75.4 % (37.0-80.0); Platelet Count (auto) 272 10^3/uL (140-450); Red Blood Cells 3.26 10^6/uL (4.0-5.20)
[2017-10-21 04:45] LABS: BUN/Creatinine Ratio 4.6; Potassium 3.7 mmol/L (3.5-5.1)
[2017-10-21] MEDS: ACCU-CHEK COMFORT CURVE STRIP VI SCH ×3 (05:45→17:07)
[2017-10-21] MEDS: InsuLIN REG 1unit/0.01ml Soln (100units/ml) SC SCH ×3 (06:32→17:26)
[2017-10-21] MEDS: SEVELAMER 800 MG TAB PO SCH ×3 (08:00→17:26)
[2017-10-21] MEDS: fentaNYL Drip 2500mCg/250mlNS 250 ML IV SCH ×2 (09:03→11:57)
[2017-10-21] MEDS: HEPARIN SODIUM (PORCINE) 5000 UNITS/ML 1ML VIAL SC SCH ×2 (10:24→21:41)
[2017-10-21] MEDS: PANTOPRAZOLE 40 MG/10 ML VIAL IV SCH (10:25)
[2017-10-21] MEDS: LINEZOLID 600MG/300ML 300 ML IV SCH ×2 (10:25→21:41)
[2017-10-21] MEDS: MEROPENEM 500mg/10ml IVPUSH 10 ML IV SCH (10:25)
[2017-10-21] MEDS: B-COMPLEX W/ C & FOLIC ACID(NEPHROVITE TAB) NG SCH (10:25)
[2017-10-21] MEDS: SODIUM CHLOR 0.9% PF (SALINE LOCK) 10ML VIAL IV SCH ×2 (10:26→21:41)
[2017-10-21] MEDS: METOCLOPRAMIDE HCL 5MG/ml INJ 2ml VIAL IV SCH ×2 (14:15→22:00)
[2017-10-21] MEDS: MIDAZOLAM DRIP 50 mg/50mL 50 ML IV SCH (17:54)
[2017-10-22] VITALS (86 sets, daily range): BP systolic 55–201; BP diastolic 29–99
[2017-10-22] MEDS: IPRATROPIUM BROM 0.5 MG/2.5ML INH SOL NEB SCH ×4 (00:17→19:19)
[2017-10-22] MEDS: ALBUTEROL SULF 2.5 MG/0.5ML(0.5%) NEB SOLN NEB SCH ×4 (00:18→19:19)
[2017-10-22] MEDS: MIDAZOLAM DRIP 50 mg/50mL 50 ML IV SCH ×2 (01:06→21:46)
[2017-10-22] MEDS: fentaNYL Drip 2500mCg/250mlNS 250 ML IV SCH ×2 (04:00→17:30)
[2017-10-22 04:33] LABS: Basophils # (auto) 0.1 uL; Basophils % (auto) 0.7 % (0.0-2.0); Eosinophils # (auto) 0.3 uL; Eosinophils % (auto) 3.2 % (0.0-7.0); Hematocrit 29.3 % (36.0-46.0); Hemoglobin 9.3 g/dL (12.2-16.2); Lymphocytes # (auto) 1.7 uL; Lymphocytes % (auto) 15.9 % (10.0-50.0); Mean Corpuscular Hemoglobin 30.1 pg (28.0-32.0); Mean Corpuscular Hgb Conc. 31.9 g/dL (32.0-36.0); Mean Corpuscular Volume 94.4 fL (80.0-100.0); Monocytes # (auto) 0.9 uL; Monocytes % (auto) 8.9 % (0.0-12.0); Neutrophils # (auto) 7.5 uL; Neutrophils % (auto) 71.3 % (37.0-80.0); Platelet Count (auto) 281 10^3/uL (140-450); Red Cell Distribution Width 17.2 % (11.8-14.3); White Blood Cell 10.6 10^3/uL (4.4-10.8)
[2017-10-22 04:50] LABS: Albumin 2.7 g/dL (3.4-5.0); BUN/Creatinine Ratio 4.9; Calcium 9.1 mg/dL (8.5-10.1); Potassium 3.4 mmol/L (3.5-5.1)
[2017-10-22 04:53] LABS: Bilirubin, Total 0.5 mg/dL (0.2-1.0); Total Protein 7.5 g/dL (6.4-8.2)
[2017-10-22] MEDS: METOCLOPRAMIDE HCL 5MG/ml INJ 2ml VIAL IV SCH ×3 (06:00→21:34)
[2017-10-22] MEDS: InsuLIN REG 1unit/0.01ml Soln (100units/ml) SC SCH ×5 (06:00→23:53)
[2017-10-22] MEDS: ACCU-CHEK COMFORT CURVE STRIP VI SCH ×5 (06:00→23:53)
[2017-10-22] MEDS: SEVELAMER 800 MG TAB PO SCH ×3 (08:00→17:41)
[2017-10-22] MEDS ORDERED: SODIUM CHL 0.9% 1000 ML BAG XX ONE ×2 (08:30→09:00)
[2017-10-22] MEDS ORDERED: EPOETIN ALFA 10,000 UNIT/1 ML VIAL IV ONE ×2 (08:30→09:00)
[2017-10-22] MEDS: HEPARIN SODIUM (PORCINE) 5000 UNITS/ML 1ML VIAL SC SCH ×2 (13:00→21:38)
[2017-10-22] MEDS: CALCITRIOL 1 MCG/ML AMPULE IV SCH (13:00)
[2017-10-22] MEDS: MEROPENEM 500mg/10ml IVPUSH 10 ML IV SCH (13:00)
[2017-10-22] MEDS: SODIUM CHLOR 0.9% PF (SALINE LOCK) 10ML VIAL IV SCH ×2 (13:00→21:34)
[2017-10-22] MEDS: PANTOPRAZOLE 40 MG/10 ML VIAL IV SCH (13:00)
[2017-10-22] MEDS: B-COMPLEX W/ C & FOLIC ACID(NEPHROVITE TAB) NG SCH (13:00)
[2017-10-22] MEDS: LINEZOLID 600MG/300ML 300 ML IV SCH ×2 (13:30→21:34)
[2017-10-22] MEDS ORDERED: NOREPINEPHRINE 8 MG/250ML KIT 250 ML IV ONE (22:32)
[2017-10-22] MEDS: NOREPINEPHRINE 8 MG/250ML KIT 250 ML IV SCH (23:00)
[2017-10-22] MEDS ORDERED: DOPamine 1600MCG/ML D5W 250 ML IV ONE (23:05)
[2017-10-22] MEDS: DOPamine 1600MCG/ML D5W 250 ML IV SCH (23:08)
[2017-10-22] MEDS ORDERED: VASOPRESSIN 20 UNIT/ML ONE (23:10)
[2017-10-22] MEDS ORDERED: ALBUMIN 5% 250 ML IV ONE ×2 (23:10→23:15)
[2017-10-22] MEDS: VASOPRESSIN 50 UNITS in D5W 5% 247.5 ML IV SCH (23:15)
[2017-10-22 23:28] LABS: Albumin 2.7 g/dL (3.4-5.0); BUN/Creatinine Ratio 4.3; Bilirubin, Total 0.6 mg/dL (0.2-1.0); Calcium 8.6 mg/dL (8.5-10.1); Magnesium 2.6 mg/dL (1.6-2.6); Potassium 4.4 mmol/L (3.5-5.1); Total Protein 7.7 g/dL (6.4-8.2)
[2017-10-23] VITALS (105 sets, daily range): BP systolic 103–167; BP diastolic 38–97
[2017-10-23] MEDS: ALBUTEROL SULF 2.5 MG/0.5ML(0.5%) NEB SOLN NEB SCH ×4 (00:49→19:11)
[2017-10-23] MEDS: IPRATROPIUM BROM 0.5 MG/2.5ML INH SOL NEB SCH ×4 (00:49→19:11)
[2017-10-23 04:27] LABS: Basophils # (auto) 0 uL; Basophils % (auto) 0.2 % (0.0-2.0); Eosinophils # (auto) 0.1 uL; Eosinophils % (auto) 0.5 % (0.0-7.0); Hematocrit 31.4 % (36.0-46.0); Hemoglobin 9.8 g/dL (12.2-16.2); Lymphocytes # (auto) 1.2 uL; Lymphocytes % (auto) 7.1 % (10.0-50.0); Mean Corpuscular Hemoglobin 29.5 pg (28.0-32.0); Mean Corpuscular Hgb Conc. 31.4 g/dL (32.0-36.0); Monocytes % (auto) 6.3 % (0.0-12.0); Neutrophils # (auto) 14.2 uL; Neutrophils % (auto) 85.9 % (37.0-80.0); Platelet Count (auto) 295 10^3/uL (140-450); Red Blood Cells 3.34 10^6/uL (4.0-5.20); Red Cell Distribution Width 16.9 % (11.8-14.3); White Blood Cell 16.5 10^3/uL (4.4-10.8)
[2017-10-23 04:45] LABS: BUN/Creatinine Ratio 4.9; Calcium 8.6 mg/dL (8.5-10.1); Potassium 3.8 mmol/L (3.5-5.1)
[2017-10-23] MEDS: InsuLIN REG 1unit/0.01ml Soln (100units/ml) SC SCH ×4 (05:52→23:58)
[2017-10-23] MEDS: ACCU-CHEK COMFORT CURVE STRIP VI SCH ×4 (05:52→23:59)
[2017-10-23] MEDS: METOCLOPRAMIDE HCL 5MG/ml INJ 2ml VIAL IV SCH (05:53)
[2017-10-23] MEDS: SEVELAMER 800 MG TAB PO SCH ×3 (08:00→18:00)
[2017-10-23] MEDS: PANTOPRAZOLE 40 MG/10 ML VIAL IV SCH (10:15)
[2017-10-23] MEDS: LINEZOLID 600MG/300ML 300 ML IV SCH ×2 (10:16→21:20)
[2017-10-23] MEDS: SODIUM CHLOR 0.9% PF (SALINE LOCK) 10ML VIAL IV SCH ×2 (10:16→21:20)
[2017-10-23] MEDS: B-COMPLEX W/ C & FOLIC ACID(NEPHROVITE TAB) NG SCH (10:16)
[2017-10-23] MEDS: MEROPENEM 500mg/10ml IVPUSH 10 ML IV SCH (10:16)
[2017-10-23] MEDS: HEPARIN SODIUM (PORCINE) 5000 UNITS/ML 1ML VIAL SC SCH ×2 (10:33→21:20)
[2017-10-23] MEDS: DOPamine 1600MCG/ML D5W 250 ML IV SCH ×2 (10:55→22:42)
[2017-10-23] MEDS ORDERED: ASPirin 325 MG TAB PO ONE (14:30)
[2017-10-23] MEDS ORDERED: CLOPIDOGREL 300 MG TAB PO ONE (14:30)
[2017-10-23] MEDS: fentaNYL Drip 2500mCg/250mlNS 250 ML IV SCH (21:13)
[2017-10-23] MEDS: VASOPRESSIN 50 UNITS in D5W 5% 247.5 ML IV SCH (22:44)
[2017-10-23] MEDS: MIDAZOLAM DRIP 50 mg/50mL 50 ML IV SCH (23:59)
[2017-10-23] MEDS: NOREPINEPHRINE 8 MG/250ML KIT 250 ML IV SCH (23:59)
[2017-10-24] VITALS (96 sets, daily range): BP systolic 93–153; BP diastolic 41–80
[2017-10-24] MEDS: ALBUTEROL SULF 2.5 MG/0.5ML(0.5%) NEB SOLN NEB SCH ×4 (00:22→18:56)
[2017-10-24] MEDS: IPRATROPIUM BROM 0.5 MG/2.5ML INH SOL NEB SCH ×4 (00:22→18:56)
[2017-10-24 03:58] LABS: Basophils # (auto) 0.1 uL; Basophils % (auto) 0.9 % (0.0-2.0); Eosinophils # (auto) 0.4 uL; Eosinophils % (auto) 4.3 % (0.0-7.0); Hematocrit 29.1 % (36.0-46.0); Hemoglobin 9.3 g/dL (12.2-16.2); Lymphocytes # (auto) 1.6 uL; Lymphocytes % (auto) 19.4 % (10.0-50.0); Mean Corpuscular Hemoglobin 29.7 pg (28.0-32.0); Mean Corpuscular Hgb Conc. 32.1 g/dL (32.0-36.0); Mean Corpuscular Volume 92.4 fL (80.0-100.0); Monocytes # (auto) 0.6 uL; Monocytes % (auto) 6.9 % (0.0-12.0); Neutrophils # (auto) 5.8 uL; Neutrophils % (auto) 68.5 % (37.0-80.0); Platelet Count (auto) 258 10^3/uL (140-450); Red Blood Cells 3.14 10^6/uL (4.0-5.20); Red Cell Distribution Width 16.8 % (11.8-14.3); White Blood Cell 8.4 10^3/uL (4.4-10.8)
[2017-10-24 04:27] LABS: Albumin 2.7 g/dL (3.4-5.0); Bilirubin, Total 0.6 mg/dL (0.2-1.0); Calcium 8.7 mg/dL (8.5-10.1); Potassium 3.1 mmol/L (3.5-5.1); Total Protein 7.2 g/dL (6.4-8.2)
[2017-10-24] MEDS: Novasource Renal 1 Liter GT SCH (04:51)
[2017-10-24] MEDS: MIDAZOLAM DRIP 50 mg/50mL 50 ML IV SCH ×2 (05:30→10:30)
[2017-10-24] MEDS: InsuLIN REG 1unit/0.01ml Soln (100units/ml) SC SCH ×3 (06:08→18:56)
[2017-10-24] MEDS: ACCU-CHEK COMFORT CURVE STRIP VI SCH ×3 (06:08→18:53)
[2017-10-24 07:39] LABS: INR 1.15 (0.9-1.15); Partial Thromboplastin Time 30.3 sec (22.64-33.71); Prothrombin Time 12.6 sec (9.37-12.3)
[2017-10-24] MEDS: SEVELAMER 800 MG TAB PO SCH ×3 (08:00→17:59)
[2017-10-24] MEDS ORDERED: EPOETIN ALFA 10,000 UNIT/1 ML VIAL IV ONE (09:00)
[2017-10-24] MEDS ORDERED: DEXTROSE (50%) 50ML SYRG IV PRN (09:30)
[2017-10-24] MEDS ORDERED: POTASSIUM CHL 10% (20 MEQ/15ML) 15ml ORAL SOLN GT ONE (09:30)
[2017-10-24] MEDS ORDERED: NITROGLYCERIN 0.4 MG SL TAB SL PRN (09:30)
[2017-10-24] MEDS: NOREPINEPHRINE 8 MG/250ML KIT 250 ML IV SCH (09:45)
[2017-10-24] MEDS: DOPamine 1600MCG/ML D5W 250 ML IV SCH ×2 (10:29→22:16)
[2017-10-24] MEDS: PANTOPRAZOLE 40 MG/10 ML VIAL IV SCH (12:45)
[2017-10-24] MEDS: MEROPENEM 500mg/10ml IVPUSH 10 ML IV SCH (12:45)
[2017-10-24] MEDS: B-COMPLEX W/ C & FOLIC ACID(NEPHROVITE TAB) NG SCH (12:45)
[2017-10-24] MEDS: SODIUM CHLOR 0.9% PF (SALINE LOCK) 10ML VIAL IV SCH ×2 (12:45→22:20)
[2017-10-24] MEDS: ASPirin 81 mg TAB PO SCH (12:46)
[2017-10-24] MEDS: CLOPIDOGREL BISULFATE 75 MG TAB PO SCH (12:46)
[2017-10-24] MEDS: HEPARIN SODIUM (PORCINE) 5000 UNITS/ML 1ML VIAL SC SCH ×2 (12:47→22:23)
[2017-10-24] MEDS: LINEZOLID 600MG/300ML 300 ML IV SCH ×2 (13:39→22:24)
[2017-10-24] MEDS: CALCITRIOL 1 MCG/ML AMPULE IV SCH (16:30)
[2017-10-24] MEDS: fentaNYL Drip 2500mCg/250mlNS 250 ML IV SCH (20:08)
[2017-10-24] MEDS: VASOPRESSIN 50 UNITS in D5W 5% 247.5 ML IV SCH (22:25)
[2017-10-25] VITALS (62 sets, daily range): BP systolic 79–149; BP diastolic 32–79
[2017-10-25] MEDS: IPRATROPIUM BROM 0.5 MG/2.5ML INH SOL NEB SCH ×4 (00:33→18:26)
[2017-10-25] MEDS: ALBUTEROL SULF 2.5 MG/0.5ML(0.5%) NEB SOLN NEB SCH ×4 (00:33→18:26)
[2017-10-25] MEDS: InsuLIN REG 1unit/0.01ml Soln (100units/ml) SC SCH ×5 (00:52→18:00)
[2017-10-25 03:52] LABS: Basophils # (auto) 0.1 uL; Basophils % (auto) 0.8 % (0.0-2.0); Eosinophils # (auto) 0.3 uL; Eosinophils % (auto) 3.7 % (0.0-7.0); Hematocrit 27.9 % (36.0-46.0); Lymphocytes # (auto) 1.5 uL; Lymphocytes % (auto) 16.8 % (10.0-50.0); Mean Corpuscular Hemoglobin 30.1 pg (28.0-32.0); Mean Corpuscular Hgb Conc. 32.4 g/dL (32.0-36.0); Mean Corpuscular Volume 93.1 fL (80.0-100.0); Monocytes # (auto) 0.6 uL; Monocytes % (auto) 6.6 % (0.0-12.0); Neutrophils # (auto) 6.4 uL; Neutrophils % (auto) 72.1 % (37.0-80.0); Nucleated Red Blood Cells % 0.1 %; Platelet Count (auto) 246 10^3/uL (140-450); Red Cell Distribution Width 16.4 % (11.8-14.3); White Blood Cell 8.8 10^3/uL (4.4-10.8)
[2017-10-25] MEDS: MIDAZOLAM DRIP 50 mg/50mL 50 ML IV SCH (03:53)
[2017-10-25 04:24] LABS: Albumin 2.1 g/dL (3.4-5.0); BUN/Creatinine Ratio 4.9; Bilirubin, Total 0.5 mg/dL (0.2-1.0); Calcium 6.7 mg/dL (8.5-10.1); Total Protein 6.2 g/dL (6.4-8.2)
[2017-10-25 04:29] LABS: Potassium 2.9 mmol/L (3.5-5.1)
[2017-10-25] MEDS ORDERED: POTASSIUM CHL 20MEQ/100ML 100 ML IV ONE (05:15)
[2017-10-25] MEDS: ACCU-CHEK COMFORT CURVE STRIP VI SCH ×4 (07:00→18:00)
[2017-10-25] MEDS: SEVELAMER 800 MG TAB PO SCH ×3 (08:00→18:00)
[2017-10-25] MEDS: HEPARIN SODIUM (PORCINE) 5000 UNITS/ML 1ML VIAL SC SCH ×2 (10:01→22:00)
[2017-10-25] MEDS: SODIUM CHLOR 0.9% PF (SALINE LOCK) 10ML VIAL IV SCH ×2 (10:02→22:30)
[2017-10-25] MEDS: ASPirin 81 mg TAB PO SCH (10:02)
[2017-10-25] MEDS: CLOPIDOGREL BISULFATE 75 MG TAB PO SCH (10:02)
[2017-10-25] MEDS: PANTOPRAZOLE 40 MG/10 ML VIAL IV SCH (10:02)
[2017-10-25] MEDS: B-COMPLEX W/ C & FOLIC ACID(NEPHROVITE TAB) NG SCH (10:02)
[2017-10-25] MEDS: LINEZOLID 600MG/300ML 300 ML IV SCH ×2 (10:02→22:30)
[2017-10-25] MEDS: MEROPENEM 500mg/10ml IVPUSH 10 ML IV SCH (10:02)
[2017-10-25] MEDS: DOPamine 1600MCG/ML D5W 250 ML IV SCH ×2 (10:03→21:50)
[2017-10-25] MEDS: fentaNYL Drip 2500mCg/250mlNS 250 ML IV SCH (23:00)
[2017-10-25] MEDS: VASOPRESSIN 50 UNITS in D5W 5% 247.5 ML IV SCH (23:15)
[2017-10-26] VITALS (40 sets, daily range): BP systolic 85–209; BP diastolic 46–116
[2017-10-26] MEDS: NOREPINEPHRINE 8 MG/250ML KIT 250 ML IV SCH
[2017-10-26] MEDS: ALBUTEROL SULF 2.5 MG/0.5ML(0.5%) NEB SOLN NEB SCH ×4 (00:29→18:49)
[2017-10-26] MEDS: IPRATROPIUM BROM 0.5 MG/2.5ML INH SOL NEB SCH ×4 (00:29→18:49)
[2017-10-26 04:26] LABS: Basophils # (auto) 0 uL; Basophils % (auto) 0.5 % (0.0-2.0); Eosinophils # (auto) 0.4 uL; Eosinophils % (auto) 4.7 % (0.0-7.0); Hematocrit 30.7 % (36.0-46.0); Hemoglobin 9.9 g/dL (12.2-16.2); Lymphocytes # (auto) 1.5 uL; Lymphocytes % (auto) 16.2 % (10.0-50.0); Mean Corpuscular Hemoglobin 29.9 pg (28.0-32.0); Mean Corpuscular Hgb Conc. 32.3 g/dL (32.0-36.0); Mean Corpuscular Volume 92.6 fL (80.0-100.0); Monocytes # (auto) 0.6 uL; Monocytes % (auto) 6.9 % (0.0-12.0); Neutrophils # (auto) 6.4 uL; Neutrophils % (auto) 71.7 % (37.0-80.0); Platelet Count (auto) 260 10^3/uL (140-450); Red Blood Cells 3.32 10^6/uL (4.0-5.20); Red Cell Distribution Width 16.6 % (11.8-14.3)
[2017-10-26 04:39] LABS: INR 1.1 (0.9-1.15); Partial Thromboplastin Time 26.2 sec (22.64-33.71)
[2017-10-26 04:40] LABS: BUN/Creatinine Ratio 4.7; Calcium 8.8 mg/dL (8.5-10.1)
[2017-10-26] MEDS: ACCU-CHEK COMFORT CURVE STRIP VI SCH ×5 (06:30→23:33)
[2017-10-26] MEDS: InsuLIN REG 1unit/0.01ml Soln (100units/ml) SC SCH ×5 (06:30→23:33)
[2017-10-26] MEDS ORDERED: ALBUMIN 25% 100 ML IV PRN (08:45)
[2017-10-26] MEDS ORDERED: LABETALOL HCL 5 MG/ML ML 20ML VIAL IV PRN (08:45)
[2017-10-26] MEDS: SEVELAMER 800 MG TAB PO SCH ×3 (09:16→18:00)
[2017-10-26] MEDS: B-COMPLEX W/ C & FOLIC ACID(NEPHROVITE TAB) NG SCH (09:16)
[2017-10-26] MEDS: CALCITRIOL 1 MCG/ML AMPULE IV SCH (09:16)
[2017-10-26] MEDS: CLOPIDOGREL BISULFATE 75 MG TAB PO SCH (09:17)
[2017-10-26] MEDS: MEROPENEM 500mg/10ml IVPUSH 10 ML IV SCH (09:18)
[2017-10-26] MEDS: PANTOPRAZOLE 40 MG/10 ML VIAL IV SCH (09:19)
[2017-10-26] MEDS: LINEZOLID 600MG/300ML 300 ML IV SCH ×2 (09:19→22:00)
[2017-10-26] MEDS: HEPARIN SODIUM (PORCINE) 5000 UNITS/ML 1ML VIAL SC SCH ×2 (09:20→22:00)
[2017-10-26] MEDS: SODIUM CHLOR 0.9% PF (SALINE LOCK) 10ML VIAL IV SCH ×2 (09:21→21:36)
[2017-10-26] MEDS: fentaNYL Drip 2500mCg/250mlNS 250 ML IV SCH ×2 (09:37→16:58)
[2017-10-26] MEDS: DOPamine 1600MCG/ML D5W 250 ML IV SCH ×2 (09:37→21:24)
[2017-10-26] MEDS: ASPirin 81 mg TAB PO SCH (10:36)
[2017-10-26] MEDS: MIDAZOLAM DRIP 50 mg/50mL 50 ML IV SCH (17:54)
[2017-10-26] MEDS: VASOPRESSIN 50 UNITS in D5W 5% 247.5 ML IV SCH (23:15)
[2017-10-27] VITALS (16 sets, daily range): BP systolic 103–144; BP diastolic 54–72
[2017-10-27] MEDS: NOREPINEPHRINE 8 MG/250ML KIT 250 ML IV SCH
[2017-10-27] MEDS: ALBUTEROL SULF 2.5 MG/0.5ML(0.5%) NEB SOLN NEB SCH ×4 (00:34→19:02)
[2017-10-27] MEDS: IPRATROPIUM BROM 0.5 MG/2.5ML INH SOL NEB SCH ×4 (00:34→19:02)
[2017-10-27] MEDS: ACCU-CHEK COMFORT CURVE STRIP VI SCH ×4 (06:00→23:48)
[2017-10-27] MEDS: InsuLIN REG 1unit/0.01ml Soln (100units/ml) SC SCH ×4 (06:00→23:48)
[2017-10-27] MEDS: SEVELAMER 800 MG TAB PO SCH ×3 (08:00→16:45)
[2017-10-27] MEDS: DOPamine 1600MCG/ML D5W 250 ML IV SCH (09:11)
[2017-10-27] MEDS: SODIUM CHLOR 0.9% PF (SALINE LOCK) 10ML VIAL IV SCH ×2 (10:54→21:55)
[2017-10-27] MEDS: PANTOPRAZOLE 40 MG/10 ML VIAL IV SCH (10:54)
[2017-10-27] MEDS: LINEZOLID 600MG/300ML 300 ML IV SCH ×2 (10:54→21:55)
[2017-10-27] MEDS: HEPARIN SODIUM (PORCINE) 5000 UNITS/ML 1ML VIAL SC SCH ×2 (10:55→22:10)
[2017-10-27] MEDS: MEROPENEM 500mg/10ml IVPUSH 10 ML IV SCH (11:35)
[2017-10-27] MEDS: ASPirin 81 mg TAB PO SCH (16:51)
[2017-10-27] MEDS: CLOPIDOGREL BISULFATE 75 MG TAB PO SCH (16:51)
[2017-10-27] MEDS: B-COMPLEX W/ C & FOLIC ACID(NEPHROVITE TAB) NG SCH (16:51)
[2017-10-28] VITALS: BP 141/66
[2017-10-28] MEDS: IPRATROPIUM BROM 0.5 MG/2.5ML INH SOL NEB SCH ×4 (00:32→18:29)
[2017-10-28] MEDS: ALBUTEROL SULF 2.5 MG/0.5ML(0.5%) NEB SOLN NEB SCH ×4 (00:32→18:29)
[2017-10-28 03:50] VITALS: BP 120/65
[2017-10-28 05:12] LABS: Basophils # (auto) 0 uL; Basophils % (auto) 0.3 % (0.0-2.0); Eosinophils # (auto) 0.3 uL; Eosinophils % (auto) 4.3 % (0.0-7.0); Hematocrit 30.8 % (36.0-46.0); Hemoglobin 9.8 g/dL (12.2-16.2); Lymphocytes # (auto) 1.1 uL; Lymphocytes % (auto) 14.7 % (10.0-50.0); Mean Corpuscular Hemoglobin 29.7 pg (28.0-32.0); Mean Corpuscular Hgb Conc. 31.9 g/dL (32.0-36.0); Mean Corpuscular Volume 93.2 fL (80.0-100.0); Monocytes # (auto) 0.6 uL; Monocytes % (auto) 8.3 % (0.0-12.0); Neutrophils # (auto) 5.5 uL; Neutrophils % (auto) 72.4 % (37.0-80.0); Platelet Count (auto) 208 10^3/uL (140-450); Red Blood Cells 3.31 10^6/uL (4.0-5.20); White Blood Cell 7.7 10^3/uL (4.4-10.8)
[2017-10-28 05:29] LABS: Calcium 8.3 mg/dL (8.5-10.1); Potassium 4.3 mmol/L (3.5-5.1)
[2017-10-28] MEDS: ACCU-CHEK COMFORT CURVE STRIP VI SCH ×3 (06:00→18:00)
[2017-10-28] MEDS: InsuLIN REG 1unit/0.01ml Soln (100units/ml) SC SCH ×3 (06:00→18:00)
[2017-10-28 08:00] VITALS: BP 120/72
[2017-10-28] MEDS: SEVELAMER 800 MG TAB PO SCH ×3 (08:00→22:22)
[2017-10-28] MEDS: MEROPENEM 500mg/10ml IVPUSH 10 ML IV SCH (10:00)
[2017-10-28] MEDS: ASPirin 81 mg TAB PO SCH (10:00)
[2017-10-28] MEDS: CALCITRIOL 1 MCG/ML AMPULE IV SCH (10:00)
[2017-10-28] MEDS: LINEZOLID 600MG/300ML 300 ML IV SCH ×2 (10:00→22:22)
[2017-10-28] MEDS: HEPARIN SODIUM (PORCINE) 5000 UNITS/ML 1ML VIAL SC SCH ×2 (10:00→22:23)
[2017-10-28] MEDS: SODIUM CHLOR 0.9% PF (SALINE LOCK) 10ML VIAL IV SCH ×2 (10:00→22:00)
[2017-10-28] MEDS ORDERED: HEPARIN SODIUM (PORCINE) 5000 UNITS/ML 1ML VIAL ONE (11:05)
[2017-10-28] MEDS: PANTOPRAZOLE 40 MG/10 ML VIAL IV SCH (11:21)
[2017-10-28] MEDS: CLOPIDOGREL BISULFATE 75 MG TAB PO SCH (11:22)
[2017-10-28] MEDS: B-COMPLEX W/ C & FOLIC ACID(NEPHROVITE TAB) NG SCH (11:22)
[2017-10-28 12:00] VITALS: BP 113/60
[2017-10-28 16:00] VITALS: BP 123/58
[2017-10-28 20:00] VITALS: BP 107/62
[2017-10-29] VITALS: BP 111/64
[2017-10-29] MEDS: ALBUTEROL SULF 2.5 MG/0.5ML(0.5%) NEB SOLN NEB SCH ×4 (00:14→19:33)
[2017-10-29] MEDS: IPRATROPIUM BROM 0.5 MG/2.5ML INH SOL NEB SCH ×4 (00:14→19:33)
[2017-10-29] MEDS: InsuLIN REG 1unit/0.01ml Soln (100units/ml) SC SCH ×4 (00:28→17:44)
[2017-10-29] MEDS: ACCU-CHEK COMFORT CURVE STRIP VI SCH ×4 (00:28→17:43)
[2017-10-29 04:00] VITALS: BP 116/95
[2017-10-29 08:00] VITALS: BP 114/59
[2017-10-29] MEDS ORDERED: ALBUMIN 25% 100 ML IV PRN (08:00)
[2017-10-29] MEDS: CLOPIDOGREL BISULFATE 75 MG TAB PO SCH (09:37)
[2017-10-29] MEDS: B-COMPLEX W/ C & FOLIC ACID(NEPHROVITE TAB) NG SCH (09:37)
[2017-10-29] MEDS: PANTOPRAZOLE 40 MG TAB PO SCH (09:37)
[2017-10-29] MEDS: SEVELAMER 800 MG TAB PO SCH ×3 (09:37→17:40)
[2017-10-29] MEDS: SODIUM CHLOR 0.9% PF (SALINE LOCK) 10ML VIAL IV SCH ×2 (09:38→21:57)
[2017-10-29] MEDS: ASPirin 81 mg TAB PO SCH (09:38)
[2017-10-29] MEDS: LINEZOLID 600MG/300ML 300 ML IV SCH ×2 (09:38→21:40)
[2017-10-29] MEDS: HEPARIN SODIUM (PORCINE) 5000 UNITS/ML 1ML VIAL SC SCH ×2 (09:42→22:00)
[2017-10-29] MEDS: MEROPENEM 500mg/10ml IVPUSH 10 ML IV SCH (10:07)
[2017-10-29] MEDS: CALCITRIOL 0.25 MCG CAP PO SCH (10:19)
[2017-10-29] MEDS ORDERED: HYDROcodone-ACET 5/325MG TAB PO PRN ×2 (10:30→22:45)
[2017-10-29] MEDS: MICONAZOLE NITRATE 2 % VAGINAL CREAM 45 GM PV SCH ×2 (11:20→21:39)
[2017-10-29 12:00] VITALS: BP 120/58
[2017-10-29] MEDS: CALCIUM ACETATE 667 MG CAP PO SCH ×2 (12:29→17:40)
[2017-10-29 17:22] VITALS: BP 118/87
[2017-10-29 22:00] VITALS: BP 126/64
[2017-10-30] MEDS: ALBUTEROL SULF 2.5 MG/0.5ML(0.5%) NEB SOLN NEB SCH ×4 (00:41→19:45)
[2017-10-30] MEDS: IPRATROPIUM BROM 0.5 MG/2.5ML INH SOL NEB SCH ×4 (00:41→19:45)
[2017-10-30] MEDS: InsuLIN REG 1unit/0.01ml Soln (100units/ml) SC SCH ×4 (01:14→17:40)
[2017-10-30 05:34] VITALS: BP 145/70
[2017-10-30] MEDS: ACCU-CHEK COMFORT CURVE STRIP VI SCH ×4 (06:01→17:36)
[2017-10-30] MEDS ORDERED: ALBUMIN 25% 100 ML IV PRN (08:00)
[2017-10-30] MEDS: CALCIUM ACETATE 667 MG CAP PO SCH ×3 (08:08→17:35)
[2017-10-30] MEDS: SEVELAMER 800 MG TAB PO SCH ×3 (08:08→17:35)
[2017-10-30 08:22] LABS: Basophils # (auto) 0.1 uL; Basophils % (auto) 1.1 % (0.0-2.0); Eosinophils # (auto) 0.3 uL; Eosinophils % (auto) 4.8 % (0.0-7.0); Hemoglobin 8.7 g/dL (12.2-16.2); Lymphocytes # (auto) 1.3 uL; Lymphocytes % (auto) 21.2 % (10.0-50.0); Mean Corpuscular Hemoglobin 30.1 pg (28.0-32.0); Mean Corpuscular Hgb Conc. 32.4 g/dL (32.0-36.0); Monocytes # (auto) 0.6 uL; Monocytes % (auto) 9.7 % (0.0-12.0); Neutrophils % (auto) 63.2 % (37.0-80.0); Nucleated Red Blood Cells % 0.2 %; Platelet Count (auto) 160 10^3/uL (140-450); Red Cell Distribution Width 16.5 % (11.8-14.3); White Blood Cell 6.2 10^3/uL (4.4-10.8)
[2017-10-30 08:39] LABS: Alanine Aminotransferase < 6 U/L (13-56); Albumin 2.7 g/dL (3.4-5.0); Alkaline Phosphatase 131 U/L (45-117); Anion Gap 12 (5-15); Aspartate Aminotransferase 14 U/L (15-37); BUN/Creatinine Ratio 3.5; Bilirubin, Total 0.5 mg/dL (0.2-1.0); Blood Urea Nitrogen 31 mg/dL (7-18); Calcium 8.5 mg/dL (8.5-10.1); Carbon Dioxide 29 mmol/L (21-32); Chloride 97 mmol/L (98-107); GFR African American 6 mL/min; GFR Non-African American 5 mL/min; Glucose 111 mg/dL (74-106); Phosphorus 4.3 mg/dL (2.5-4.90); Potassium 4.1 mmol/L (3.5-5.1); Sodium 138 mmol/L (136-145); Total Protein 7.3 g/dL (6.4-8.2)
[2017-10-30 09:00] VITALS: BP 144/58
[2017-10-30] MEDS: MEROPENEM 500mg/10ml IVPUSH 10 ML IV SCH (10:00)
[2017-10-30] MEDS ORDERED: EPOETIN ALFA 10,000 UNIT/1 ML VIAL IV ONE (10:45)
[2017-10-30] MEDS ORDERED: SODIUM CHL 0.9% 1000 ML BAG XX ONE (10:45)
[2017-10-30 12:00] VITALS: BP 166/75
[2017-10-30] MEDS: B-COMPLEX W/ C & FOLIC ACID(NEPHROVITE TAB) NG SCH (13:51)
[2017-10-30] MEDS: CALCITRIOL 0.25 MCG CAP PO SCH (13:51)
[2017-10-30] MEDS: PANTOPRAZOLE 40 MG TAB PO SCH (13:51)
[2017-10-30] MEDS: HEPARIN SODIUM (PORCINE) 5000 UNITS/ML 1ML VIAL SC SCH ×2 (13:53→22:58)
[2017-10-30] MEDS: CLOPIDOGREL BISULFATE 75 MG TAB PO SCH (13:55)
[2017-10-30] MEDS: ASPirin 81 mg TAB PO SCH (13:55)
[2017-10-30] MEDS: SODIUM CHLOR 0.9% PF (SALINE LOCK) 10ML VIAL IV SCH ×2 (13:55→22:56)
[2017-10-30] MEDS: LINEZOLID 600MG/300ML 300 ML IV SCH (14:00)
[2017-10-30 16:58] VITALS: BP 109/48
[2017-10-30] MEDS: Novasource Renal 8 Ounces PO SCH (18:00)
[2017-10-30 21:42] VITALS: BP 136/74
[2017-10-30] MEDS: MICONAZOLE NITRATE 2 % VAGINAL CREAM 45 GM PV SCH (22:56)
[2017-10-31] MEDS: ALBUTEROL SULF 2.5 MG/0.5ML(0.5%) NEB SOLN NEB SCH ×3 (00:30→11:33)
[2017-10-31] MEDS: IPRATROPIUM BROM 0.5 MG/2.5ML INH SOL NEB SCH ×3 (00:30→11:33)
[2017-10-31 04:41] VITALS: BP 106/62
[2017-10-31] MEDS: InsuLIN REG 1unit/0.01ml Soln (100units/ml) SC SCH ×3 (05:17→11:30)
[2017-10-31] MEDS: ACCU-CHEK COMFORT CURVE STRIP VI SCH ×3 (05:17→11:30)
[2017-10-31 07:51] LABS: Basophils # (auto) 0.1 uL; Basophils % (auto) 1.5 % (0.0-2.0); Eosinophils # (auto) 0.3 uL; Eosinophils % (auto) 4.5 % (0.0-7.0); Hemoglobin 9.8 g/dL (12.2-16.2); Lymphocytes # (auto) 1.5 uL; Lymphocytes % (auto) 22.3 % (10.0-50.0); Mean Corpuscular Hemoglobin 30.8 pg (28.0-32.0); Mean Corpuscular Hgb Conc. 32.6 g/dL (32.0-36.0); Mean Corpuscular Volume 94.5 fL (80.0-100.0); Monocytes # (auto) 0.6 uL; Monocytes % (auto) 9.5 % (0.0-12.0); Neutrophils # (auto) 4.1 uL; Neutrophils % (auto) 62.2 % (37.0-80.0); Nucleated Red Blood Cells % 0.2 %; Platelet Count (auto) 171 10^3/uL (140-450); Red Blood Cells 3.18 10^6/uL (4.0-5.20); White Blood Cell 6.6 10^3/uL (4.4-10.8)
[2017-10-31 08:03] LABS: BUN/Creatinine Ratio 3.1; Calcium 9.2 mg/dL (8.5-10.1); Potassium 3.8 mmol/L (3.5-5.1)
[2017-10-31] MEDS: CALCIUM ACETATE 667 MG CAP PO SCH ×2 (08:42→12:04)
[2017-10-31] MEDS: SEVELAMER 800 MG TAB PO SCH ×2 (08:42→12:05)
[2017-10-31] MEDS: Novasource Renal 8 Ounces PO SCH (08:42)
[2017-10-31 09:00] VITALS: BP 94/59
[2017-10-31] MEDS ORDERED: PANT40T PO (09:24)
[2017-10-31] MEDS ORDERED: CLOP75TA28 PO (09:24)
[2017-10-31] MEDS ORDERED: LEVO750T64 PO (09:24)
[2017-10-31] MEDS ORDERED: ASPI81CH43 PO (09:24)
[2017-10-31] MEDS ORDERED: SEVE800T PO (09:24)
[2017-10-31] MEDS: CLOPIDOGREL BISULFATE 75 MG TAB PO SCH (09:53)
[2017-10-31] MEDS: B-COMPLEX W/ C & FOLIC ACID(NEPHROVITE TAB) NG SCH (09:53)
[2017-10-31] MEDS: ASPirin 81 mg TAB PO SCH (09:53)
[2017-10-31] MEDS: PANTOPRAZOLE 40 MG TAB PO SCH (09:54)
[2017-10-31] MEDS: SODIUM CHLOR 0.9% PF (SALINE LOCK) 10ML VIAL IV SCH (09:54)
[2017-10-31] MEDS: HEPARIN SODIUM (PORCINE) 5000 UNITS/ML 1ML VIAL SC SCH (09:54)
[2017-10-31] MEDS: CALCITRIOL 0.25 MCG CAP PO SCH (09:54)
[2017-10-31] MEDS ORDERED: MEROPENEM 500mg/10ml IVPUSH 10 ML IV SCH (10:00)
[2017-10-31 10:23] VITALS: BP 94/59
[2017-10-31] MEDS ORDERED: SODIUM CHL 0.9% 1000 ML BAG XX ONE (11:00)
[2017-10-31] MEDS ORDERED: EPOETIN ALFA 10,000 UNIT/1 ML VIAL IV ONE (11:00)
[2017-10-31 13:00] VITALS: BP 119/50
[2017-10-31 14:44] VITALS: BP 137/107
[2017-10-31 16:27] VITALS: BP 115/53
== END 2017-10-31 17:30 | DRG 812 ==
LOC: EDBD 15:52 → ER 15:52 → EDUNIT# 15:52 → EDSEX 15:52 → TELE 15:53 → ICU WEST 23:15 → DOU IN ICU 10-27 17:53 → TELE-CENTR 10-29 14:25
PROVIDERS: ADMIT Internal Medicine; ATTEND Internal Medicine
PROC: 5A1955Z Respiratory Ventilation, Greater than 96 Consecutive Hours (ICD-10-PCS; principal; 2017-10-11)
PROC: 0BH17EZ Insertion of Endotracheal Airway into Trachea, Via Natural or Artificial Opening (ICD-10-PCS; 2017-10-11)
PROC: 5A12012 Performance of Cardiac Output, Single, Manual (ICD-10-PCS; 2017-10-11)
PROC: 02HV33Z Insertion of Infusion Device into Superior Vena Cava, Percutaneous Approach (ICD-10-PCS; 2017-10-12)
PROC: 30233N1 Transfusion of Nonautologous Red Blood Cells into Peripheral Vein, Percutaneous Approach (ICD-10-PCS; 2017-10-17)
PROC: 5A1D70Z Performance of Urinary Filtration, Intermittent, Less than 6 Hours Per Day (ICD-10-PCS; 2017-10-31)
DX: T40.601A Poisoning by unspecified narcotics, accidental (unintentional), initial encounter (principal); I46.9 Cardiac arrest, cause unspecified; J96.20 Acute and chronic respiratory failure, unspecified whether with hypoxia or hypercapnia; J69.0 Pneumonitis due to inhalation of food and vomit; G92 Toxic encephalopathy; I50.43 Acute on chronic combined systolic (congestive) and diastolic (congestive) heart failure; I44.2 Atrioventricular block, complete; N18.6 End stage renal disease; I27.20 Pulmonary hypertension, unspecified; E44.0 Moderate protein-calorie malnutrition; I13.2 Hypertensive heart and chronic kidney disease with heart failure and with stage 5 chronic kidney disease, or end stage renal disease; E66.01 Morbid (severe) obesity due to excess calories; E11.22 Type 2 diabetes mellitus with diabetic chronic kidney disease; E11.21 Type 2 diabetes mellitus with diabetic nephropathy; F17.210 Nicotine dependence, cigarettes, uncomplicated; G89.29 Other chronic pain; I25.10 Atherosclerotic heart disease of native coronary artery without angina pectoris; J15.6 Pneumonia due to other Gram-negative bacteria; J44.0 Chronic obstructive pulmonary disease with (acute) lower respiratory infection; K21.9 Gastro-esophageal reflux disease without esophagitis; N76.0 Acute vaginitis; M19.90 Unspecified osteoarthritis, unspecified site; I95.9 Hypotension, unspecified; E87.6 Hypokalemia; I27.21 Secondary pulmonary arterial hypertension; E21.3 Hyperparathyroidism, unspecified; D63.8 Anemia in other chronic diseases classified elsewhere; E87.2 Acidosis; Z95.5 Presence of coronary angioplasty implant and graft; Z99.2 Dependence on renal dialysis; Z22.322 Carrier or suspected carrier of Methicillin resistant Staphylococcus aureus; Z68.41 Body mass index [BMI] 40.0-44.9, adult; Z88.1 Allergy status to other antibiotic agents; Z88.5 Allergy status to narcotic agent; Y92.89 Other specified places as the place of occurrence of the external cause
CPT/HCPCS: 31500; 36415; 36569; 36600; 51702; 70450; 71045; 76604; 80048; 80053; 80202; 82306; 82805; 82962; 83036; 83605; 83735; 83880; 83970; 84100; 84443; 84484; 85025; 85379; 85610; 85730; 86850; 86900; 86901; 86920; 87040; 87070; 87077; 87081; 87186; 87205; 87493; 90935; 92610; 93005; 93306; 93970; 94002; 94003; 94640; 96365; 96367; 96375; 96379; 97163; 99291; C9113; J0636; J0885; J1642; J1815; J1956; J2001; J2250; J2543; J3010; J3480; J3490; J7060; Q9956